=== PATIENT | male | born 1960 | race Caucasian/White ===

== ENCOUNTER → 2017-12-08 09:41 | Outpatient (CLI) | payer MEDICAID, SELFPAY ==
--- NOTE | 2017-12-08 09:57 | RAD_ITS ---
STUDY: X-RAY - LUMBAR SPINE REASON FOR EXAM: Male, 56 years old. Low back pain TECHNIQUE: 5 view(s) of the lumbar spine were obtained. COMPARISON: None FINDINGS: Normal lumbar lordosis. There is no substantial scoliosis. There is a normal alignment of the vertebrae. Posterior bilateral pedicles L5-S1 with disc spacer at L5-S1. Normal vertebral bodies and endplates. Normal disc space heights. The soft tissue structures are unremarkable. RAD/L/S Spine Min 4 Views IMPRESSION: No fracture. L5 and S1 hardware as described. Normal lordosis. Electronically Signed: Adonis Gotti DO at 10:39 EST , Service support ,
== END ==
PROVIDERS: Visit Provider Anesthesiology Pain Medicine
DX: M54.5 Low back pain (principal)
CPT/HCPCS: 72110

== ENCOUNTER → 2018-10-17 06:17 | Outpatient (CLI) | payer MEDICAID, SELFPAY ==
[2018-10-16 12:33] LABS: BUN 14 mg/dL (7-18); EST Glomerular Filtration Rate 73 mL/min (>60); Est Glom Filt Rate - Afr Amer 89 mL/min (>60)
--- NOTE | 2018-10-17 06:33 | MRI_ITS ---
STUDY: MRI LUMBAR SPINE WITH AND WITHOUT CONTRAST REASON FOR EXAM: Male, 57 years old. spondylosis, post lami syndrome, LOW BACK PAIN X 5 YRS. TECHNIQUE: Standardized fat and water weighted pulse sequences were obtained in the sagittal and axial planes. 10 ml of Gadavist contrast material was administered for the contrast portion of the examination. COMPARISON: X-ray dated December 08, 2017 FINDINGS: T12-L1: Normal endplates. Normal disc height, hydration and morphology. Normal bilateral facet joints. Normal central canal and bilateral lateral recesses. Normal bilateral intervertebral neural foramina. Normal lumbar lordosis. There is no substantial scoliosis. Normal conus medullaris that terminates at the L1 L1-2: Normal endplates. Normal disc height, hydration and morphology. Normal bilateral facet joints. Normal central canal and bilateral lateral recesses. Normal bilateral intervertebral neural foramina. L2-3: Normal endplates. Normal disc height, hydration and morphology. Normal central canal and bilateral lateral recesses. Normal bilateral intervertebral neural foramina. There is mild facet arthropathy L3-4: Normal endplates. Normal disc height, hydration and morphology. Normal central canal and bilateral lateral recesses. Normal bilateral intervertebral neural foramina. There is mild facet arthropathy L4-5: There is minimal disc space narrowing and endplate spondylosis. There is no significant disc herniation, central canal or foraminal stenosis. There is mild facet arthropathy L5-S1: There is mild disc space narrowing and endplates spondylosis. There is disc spacer and posterior fusion and decompression laminectomy. The central canal and bilateral neural foramina are widely patent Normal visualized sacral ala. MRI/Spine Lumbar W/WO Contrast IMPRESSION: L5/S1: Posterior fusion. Electronically Signed: Love Tripathi MD at 8:13 EST Tel , Service support ,
== END ==
PROVIDERS: Referring Provider Nurse Practitioner Family; Visit Provider Nurse Practitioner Family
DX: M46.96 Unspecified inflammatory spondylopathy, lumbar region (principal); M51.37 Other intervertebral disc degeneration, lumbosacral region; M96.1 Postlaminectomy syndrome, not elsewhere classified; M54.17 Radiculopathy, lumbosacral region; M47.817 Spondylosis without myelopathy or radiculopathy, lumbosacral region
CPT/HCPCS: 36415; 72158; 82565; 84520; A9585

== ENCOUNTER → 2019-05-21 13:31 | Outpatient (CLI) | payer MEDICAID, SELFPAY ==
[2019-05-21 14:19] LABS: PSA,Total - Annual Screen 1.34 ng/mL (0.00-4.00)
== END ==
PROVIDERS: Referring Provider Urology; Visit Provider Urology
DX: R35.1 Nocturia (principal)
CPT/HCPCS: 36415; 84153; G0103

== ENCOUNTER 2020-12-21 09:57 | Outpatient (RCR) | payer MEDICAID, SELFPAY ==
[2020-12-21] MEDS: COVID-19 VACC, MRNA(PFIZER)/PF 30 MCG/0.3 ML SYRINGE IM (10:17)
[2021-01-11] MEDS: COVID-19 VACC, MRNA(PFIZER)/PF 30 MCG/0.3 ML SYRINGE IM (09:46)
== END 2021-03-15 23:59 ==
LOC: IMMUN 09:57
PROVIDERS: Visit Provider Family Medicine
DX: Z23 Encounter for immunization (principal)
CPT/HCPCS: 0001A; 0002A; 91300

== ENCOUNTER 2021-03-22 04:45 | Observation (INO) | payer MEDICAID, SELFPAY ==
[2021-03-22] VITALS (13 sets, daily range): BP systolic 120–187; BP diastolic 74–102; PULSE 60–106; RESP 15–18; TEMP 36.2–37.2; O2SAT 94–100; BMI 27.7; BMI 27.2
--- NOTE | 2021-03-22 04:58 | CT_ITS ---
HISTORY: RUQ/epigastric pain, eval pancreas/gallbladder TECHNIQUE: Helically acquired images were obtained of the abdomen and pelvis following the intravenous administration of 100 ML of Isovue 300 Iodinated contrast. 2D reformats. No oral contrast was administered. A radiation dose optimization technique was used for this scan. COMPARISON: None FINDINGS: # of images incl. paperwork: [phone] LUNG BASES: Tiny pericardial effusion. Lung bases are clear. Within the left chest wall, anterior to the left ventricle, there is a 2.9 cm mass within the subcutaneous fat extending to the skin. Contains calcifications. This likely represents an epidermal inclusion cyst CT abdomen: Previous surgery at the L5-S1 level with posterior fixation and a prosthetic disc spacer. At least partial fusion across the left L5-S1 facets. Laminectomy L5. The gallbladder is distended with many gallstones in the gallbladder neck. These are calcified gallstones. Series 4 image 33 suggests a possible gallstone within the suprapancreatic portion of the common bile duct measuring about 1 mm. I cannot confirm this on additional imaging series. Liver, spleen, pancreas, and adrenal glands, are normal. A cortical cyst is present within the inferior pole right kidney. Parapelvic cysts are present bilaterally. Nonobstructing left nephrolith.. The aorta is diseased with atherosclerotic plaque. No aneurysm or dissection. CT pelvis: No ascites is present. The appendix is normal. Series 4 image 62. The prostate gland is slightly enlarged.. The bladder is mostly decompressed. Diverticulosis within the descending and sigmoid colon without diverticulitis. Periumbilical hernia contains fat. CT/Abdomen/Pelvis W IV Cont ONLY IMPRESSION: Cholelithiasis and likely acute cholecystitis. On one image, series 4 image 33 axial series there may be a 1 mm gallstone within the common bile duct as it starts to enter into the pancreatic head. Individualized dose optimization techniques were used for this CT. at 0601 Reported and signed by: Esteban Palacio MD Electronically Signed: Esteban Palacio MD at 6:00 EDT Tel , Service support ,
--- NOTE | 2021-03-22 05:00 | EX.ED.DYSGE1 ---
HPI History of Present Illness Chief Complaint: Abd Pain Informant: patient Narrative Narrative: Patient is a 60-year-old previously healthy male who presents to the emergency department for epigastric abdominal pain. This is been present over the past 5 or 6 hours. He describes the epigastric pain is sharp stabbing. He does have lower midline pain that he describes as burning. He tried taking a Tums for this which did not give any relief. He tried to make himself throw up which did not help. He has not been nauseous. He denies any change in bowel movements. He currently rates the pain as an 8 out of 10. No known aggravating or relieving factors. No urinary symptoms. Denies any chest pain or shortness of breath. He has chronic low back pain. No previous abdominal surgeries. He has not had any fevers or chills. [facility] Medical History (Updated 03/22/21 @ 06:[address] Jonatan Beverly DO) Chronic pain Degenerative disc disease Home Medications cyclobenzaprine 10 mg PO TID PRN 03/22/21 [History Last Taken Unknown] oxycodone-acetaminophen 1 tab PO DAILY PRN 03/22/21 [History Last Taken Unknown] Allergy/AdvReac Type Severity Reaction Status Date / Time No Known Allergies Allergy Verified 03/22/21 04:49 Surgical History (Updated 03/22/21 @ 04:51 by Sarita Sagastume) History of back surgery Social History Smoking Status: Current every day smoker tobacco type: cigarettes ROS ROS ED Constitutional Constitutional ED: Denies chills or fever(s) Eyes Eyes: Denies change in vision ENT ENT ED: Denies epistaxis or rhinorrhea Cardiovascular Cardiovascular: Denies chest pain or palpitations Respiratory/Chest Respiratory/Chest: Denies cough, dyspnea or dyspnea on exertion Gastrointestinal Gastrointestinal: Reports abdominal pain; Denies diarrhea, nausea or vomiting Genitourinary Genitourinary ED: Denies dysuria, hematuria or urinary frequency Musculoskeletal Musculoskeletal: Denies back pain or neck pain Integumentary Denies rash Neurologic Neurologic: Denies dizziness, headache(s) or weakness EXAM Physical Exam Const Vital Signs: 03/22/21 04:46 03/22/21 05:11 Temperature 97.7 F L Temperature Source Temporal Pulse Rate 106 H 102 H Respiratory Rate 16 16 Blood Pressure 185/98 H 187/102 H Blood Pressure Mean 127 130 Pulse Ox 100 98 Oxygen Delivery Method Room Air Room Air Positive well nourished and well developed General Appearance ED: well developed and NAD HEENT Reports normocephalic and head/scalp atraumatic Eyes PERRL and EOMs intact bilaterally Neck no lymphadenopathy and supple General: Negative for tenderness Resp normal respiratory effort and clear to auscultation bilaterally Auscultation: Negative for rales, rhonchi or wheezes Cardio regular rate, regular rhythm and no murmurs GI GI Narrative: Tenderness in the epigastric, right upper quadrant and right lower quadrant. No rebound or guarding. Negative Deutsch sign. Normal active bowel sounds. Back/Spine no CVA tenderness Extremity normal to inspection General Extremety ED: Negative for edema or tenderness General Extremity: Negative for edema Neuro no sensory deficits noted Sensorium / Orientation: alert Motor Exam: strength 5/5 throughout Psych mental status grossly normal Skin no rashes or lesions noted MDM MDM MDM Narrative Medical decision making narrative: Patient presents to the ED for abdominal pain. Upon arrival to the ED he is mildly hypertensive, tachycardic. He does not appear in any acute distress on physical exam. He does have tenderness which is mostly in the right upper quadrant and epigastric region. Will check basic lab work and CT scan of the abdomen/pelvis. He is given a dose of morphine and GI cocktail for symptomatic treatment. Patient's lab work showed elevation of his white blood cell count. Liver enzymes within normal limits. Alkaline phosphatase is mildly elevated lipase and bilirubin are normal. CT scan was concerning for acute cholecystitis. I did speak to the on-call general surgeon, Dr. Salcedo who was willing to admit the patient for surgery. Patient will be given a dose of Zosyn. Patient given a repeat dose of pain medication as he still in pain. This was all explained to the patient and he is agreeable with this plan. He otherwise has remained stable throughout ED stay. Lab Data Labs: Laboratory Results - last 24 hr 03/22/21 03/22/21 04:50 04:50 WBC 14.8 H RBC 5.60 Hgb 17.4 H Hct 52.5 MCV 93.8 MCH 31.1 MCHC 33.1 RDW Std Deviation 47.0 H RDW Coeff of Digna 13.4 Plt Count 318 MPV 9.6 Immature Gran % (Auto) 0.600 Neut % (Auto) 76.3 H Lymph % (Auto) 17.1 L Mineral % (Auto) 5.4 Eos % (Auto) 0.2 Baso % (Auto) 0.4 Absolute Neuts (auto) 11.3 H Absolute Lymphs (auto) 2.52 Nucleated RBC % 0 Sodium 138 Potassium 4.3 Chloride 102 Carbon Dioxide 30.0 Anion Gap 6 BUN 15 Creatinine 1.10 Estim Creat Clear Calc 76.06 Est GFR (MDRD) Af Amer 88 Est GFR (MDRD) Non-Af 73 BUN/Creatinine Ratio 13.6 Glucose 142 H Calcium 9.9 Total Bilirubin 0.50 AST 23 ALT 33 Alkaline Phosphatase 161 H Troponin I < 0.015 Total Protein 8.1 Albumin 4.0 Globulin 4.1 Albumin/Globulin Ratio 1.0 Lipase 166 Radiography Diagnostic Testing: Radiology Impression Abdomen/Pelvis CT 03/22/21 04:58 IMPRESSION: Cholelithiasis and likely acute cholecystitis. On one image, series 4 image 33 axial series there may be a 1 mm gallstone within the common bile duct as it starts to enter into the pancreatic head. Individualized dose optimization techniques were used for this CT. at 0601 Reported and signed by: Esteban Palacio MD Electronically Signed: Esteban Palacio MD at 6:00 EDT Tel , Service support , Discharge Plan Dx/Rx/DC Orders Clinical Impression: Acute cholecystitis Disposition Disposition: Acute Care [facility]
[2021-03-22 05:03] LABS: Absolute Lymphocyte Count 2.52 X10^3/uL (0.83-4.51); Absolute Neutrophil Count 11.3 X10^3/uL (2.0-7.7); Basophil# 0.06 X10^3/uL; Basophil% 0.4 % (0-1); Eosinophil# 0.03 X10^3/uL; Eosinophils% 0.2 % (0-5); Hematocrit 52.5 % (40-54); Hemoglobin 17.4 g/dL (13.0-16.5); Lymphocyte # 2.52 X10^3/ul (0.83-4.51); Lymphocyte % 17.1 % (19-41); Mean Corp Hgb Conc 33.1 g/dL (32-36); Mean Corpuscular Hgb 31.1 pg (27.0-32.0); Mean Corpuscular Volume 93.8 fL (80-94); Mean Platelet Vol. 9.6 fl (6.2-12.0); Monocyte% 5.4 % (0-10); NRBC Flagged by Analyzer 0 % (0-5); Neutrophil # 11.26 X10^3/uL (2.7-7.7); Neutrophil % 76.3 % (47-70); Platelet Count 318 K/mm3 (150-450); RBC Distribution Width CV 13.4 % (11.6-14.6); White Blood Count 14.8 K/mm3 (4.4-11.0)
[2021-03-22] MEDS: Mag Hydrox/Al Hydrox/Simeth 30 ML UDC PO (05:04)
[2021-03-22] MEDS: Morphine 4 MG/ML Syringe IV (05:04)
[2021-03-22 05:19] LABS: AST(SGOT) 23 U/L (15-37); Alanine Aminotransfer ALT/SGPT 33 U/L (16-61); Alkaline Phosphatase 161 U/L (45-117); Anion Gap 6 (5-15); BUN 15 mg/dL (7-18); BUN/Creat Ratio 13.6 RATIO (10-20); Calcium,Total 9.9 mg/dL (8.5-10.1); Chloride 102 mmol/L (98-107); EST Glomerular Filtration Rate 73 mL/min (>60); Est Glom Filt Rate - Afr Amer 88 mL/min (>60); Estimated Creatinine Clearance 76.06 ml/min; Globulin 4.1 g/dL (2.2-4.2); Glucose 142 mg/dL (74-106); Lipase 166 U/L (73-393); Potassium 4.3 mmol/L (3.5-5.1); Protein, Total 8.1 g/dL (6.4-8.2); Sodium Level 138 mmol/L (136-145)
[2021-03-22] MEDS: HYDROmorphone 1 MG/ML Syringe IV (06:52)
--- NOTE | 2021-03-22 06:52 | EKG12_ITS ---
Test Reason : ABDOMINAL PAIN Blood Pressure : / mmHG Vent. Rate : 084 BPM Atrial Rate : 084 BPM P-R Int : 154 ms QRS Dur : 078 ms QT Int : 368 ms P-R-T Axes : 061 -18 040 degrees QTc Int : 434 ms Normal sinus rhythm Low voltage QRS Borderline ECG Confirmed by FLO TRISTAN, IGNACIO ([id number]), assistant film editor FARIBA PANTOJA ([id number]) on 03/24/2021 10:00:12 AM Referred By: LYNDSEY Confirmed By:IGNACIO ROSSI MD
--- NOTE | 2021-03-22 07:35 | NURSING ---
Alirio MORGAN ACUTE CHOLECYSTITIS
--- NOTE | 2021-03-22 11:23 | HP.PCM_ITS ---
History and Physical Date of Admission: 03/22/21 Chief Complaint: abdominal pain History of Present Illness: 60 y/o WM presents to ED this morning with acute onset of severe epigastric abdominal pain. He has had episodes in the past but they have been transient and less severe. This has been present for hours. Workup in the ED revealed elevated WBC. CT scan reveals multiple calcified gallstones, possible choledocholithiasis. Past Medical History: chronic back pain Past Surgical History: back surgery Medications: cylcobenzapine percocet 1 qd Allergies: Has no known drug allergies Social history: TOB use cigars Review of Systems: General - denies fevers, has no appetite at present Cardiovascular denies chest pain, denies history of heart attack, denies heart problems Pulmonary denies shortness of breath, denies coughing up blood Gastrointestinal as per HPI Neurological denies seizures, denies history of stroke Genitourinary denies burning with urination, denies blood in urine Hematological denies spontaneous/prolonged bleeding Skin denies open non healing wounds Musculoskeletal has chronic back pain receiving injections Endocrine denies diabetes Psychological denies hallucinations Physical examination: Vital signs Temp 97.7F General WD/WN WM in no apparent distress, alert and oriented, not septic appearing Head - normocephalic - no evidence of trauma infections Eyes - EOM intact with sclera clear and no icterus noted. Neck is supple with no jugular venous distention noted. Trachea is midline. . Lungs normal respiratory excursion, no adventitial sounds noted. No labored breathing noted, such as retractions. No cough heard. Heart regular Abdomen soft but tender in epigastrium and RUQ, no peritoneal signs noted. Extremities no pitting edema noted. . Genitourinary/Rectal deferred Skin normal skin integrity. Neurological non focal. Psychological normal affect, patient is calm and appropriate Impression: cholelithiasis, cholecystitis DIscussion/Plan: I have discussed the above with the patient. I have offered the patient the procedure of laparoscopic cholecystectomy,possible cholangiograms. I have explained the procedure to the patient. I have counseled the patient as to the risks of the procedure, including but not limited to: infection, bleeding, injury to any blood vessels/nerves, scar tissue, injury to any intraabdominal organs, injury to kidney/ureters, injury to bowel/bladder, injury to the common bile duct/biliary tree, bile leakage, intraabdominal abscess/bleeding, hernias at incisional sites, wound infections, possible open procedure, complications of anesthesia, postoperative pneumon ia/cardiac problems/blood clots etc. the patient understands. The patient was offered a surgery/procedure. The provider and patient have discussed in detail the risk of exposure to and/or potential harm posed by the COVID-19 virus with having a surgery/procedure at this time versus the risk of delaying the surgery/procedure. It is not possible to know either the risk of delaying the surgery or procedure or chance of getting an infection with perfect accuracy, but a joint decision was made between the patient and the provider to proceed at this time with the scheduled surgery/procedure. I have answered all questions to the patient?s satisfaction and the patient has no further questions. He wishes to proceed
[2021-03-22] MEDS: 0.9% Normal Saline 1,000 ML 125 ML IV ×2 (11:38→20:10)
--- NOTE | 2021-03-22 15:30 | GALL_PTH ---
PATIENT: HIWOT DELCID LOC: MS3 U#:[id number] AGE/SX: 60/M [place] [facility] [place]: Dr. Elina Salcedo MD : [id number] BED: 1 DIS: 03/23/2021 SPEC #: [id number] RECD: 03/23/21 07:03 STATUS: MILLER REAnum #: [id number] WOJCIECH: 03/22/21 15:[address]: Elina Salcedo DEPT: SURGICAL PATHOLOGY RECD BY: Pinky Ybarra ENTERED: 03/23/21 10:43 SP TYPE: [facility] DR: No Primary Care Phys Tissues: Gallbladder, NOS Procedures: Surgery Specimen Level III HEADER OPERATION: Laparoscopic cholecystectomy PRE-OP DIAGNOSIS: Cholelithiasis, cholecystitis TISSUE SUBMITTED: Gallbladder MICROSCOPIC DIAGNOSIS Gallbladder, cholecystectomy: Acute and chronic cholecystitis and cholelithiasis. AM:becky 03/24/2021 MICROSCOPIC DESCRIPTION Slides are reviewed. GROSS DESCRIPTION Received is one container labeled with the patient's name and designated gallbladder. The specimen consists of a previously, partially opened gallbladder measuring 6 cm in length and up to 3.5 cm in diameter. An obvious cystic duct is not seen. No carline are noted at the proximal margin. Present in the gallbladder and also in the container are multiple mulberry, yellowish-orange stones measuring in aggregate 2 x 2.4 x 0.7 cm and 0.3 to 0.7 cm in greatest dimension. The mucosa is bile-stained and without any mass lesions. The gallbladder wall measures up to 1 cm in thickness. Increased amount of subserosal fat is noted. Aquaculture Farm Manager sections from the gallbladder are submitted in one cassette. / SJ:becky 03/23/21 TC:2 [facility]: [id number]
[2021-03-22] MEDS: Bupivacaine 0.25% 30 ML Vial (16:43)
--- NOTE | 2021-03-22 17:59 | OP.PCM_ITS ---
Report of Operation Date of Procedure: 03/22/21 Pre-Operative Diagnosis: cholelithiasis, cholecystitis Post-Operative Diagnosis: same Surgery/Procedure Performed:: laparoscopic cholecystectomy Description of Surgical Findings:: wall thickening - acute and chronic changes of cholecystitis Surgeon: Elina Salcedo business excellence manager: Vivek Webb Type of Anesthesia: General Anesthesiologist: Mateus Mcfarland Specimen's removed: gallbladder and contents Drains: 15 Fr YONIS drain Estimated Blood Loss (mL): 30 ml Fluids Replaced: 1200 ml RL Description of Procedure: After informed consent was given, the patient was brought to the Operating Room. Appropriate time out protocol was followed. The patient was placed in the supine position. The patient was then placed under general endotracheal anesthesia by the anesthesia provider. The abdomen was then prepped with a sterile surgical skin preparation and sterile surgical drapes were placed. An area superior to the umbilical dimple was grasped with p enetrating clamps and the skin and subcutaneous tissues were infiltrated with 0.25% marcaine. A skin incision was then made with a 15 blade scalpel. The anterior abdominal wall was elevated and the fascia was incised under direct visualization, there was mesh present. A 12mm trocar was placed into the abdomen and a CO2 pneumoperitoneum was then created. Once this was achieved, then a 10mm laparoscope was then inserted into the trocar and careful attention was directed to the intraabdominal contents. There was no evidence of injury to any intraabdominal organs from insertion of the trocar. Under direct visualization, a 5mm subxiphoid trocar and two lateral 5mm right subcostal trocars were placed. The skin and subcutaneous tissues at these sites were infiltrated with 0.25% marcaine prior to placement of these trocars. Attention was then directed to the right upper quadrant of the abdomen. The gallbladder wall was thickened and not visualized proximally due to the amount of inflammatory fatty tissues. There was surrounding inflammatory pericholecystic fluid. The inflammatory fatty tissues were from the gallbladder wall using blunt dissection and there was inflammatory oozing that was noted. This was controlled with electrocautery. The inflammation was densest at the area of the triangle of Calot. Graspers were placed in the lateral trocars to grasp the distal aspect of the gallbladder and direct it cephalad and to grasp the gallbladder at Romo?s pouch and direct it laterally. Dissection then began on the mid to proximal gallbladder through the thickened inflammation to identify the gallbladder wall. Once the gallbladder wall was identified, then water irrigation was used for blunt dissection to delineate the tissues. This was continued down to the triangle of Calot area. This took some time, due to controlling the inflammatory oozing and also careful dissection to identify the tissues which was difficult due to the inflammation. The critical angle was identified - the cystic duct, the inferior edge of the gallbladder dissected away from the liver bed. The neck of the gallbladder was identified and blunt dissection continued to dissect out a segment of the cystic duct. A clip was then placed on the neck of the gallbladder. Two clips were placed proximally and the duct was transected. The artery was identified and two clips were placed proximally and one clip distally and then it was transected between the proximal and distal clips. The gallbladder was then from the liver bed using electrocautery. This took some time due to the dense nature of the thickened gallbladder wall. Once from the liver bed, it was brought out via the umbilical port in an endobag. It was then forwarded to pathology for analysis. The liver bed was carefully examined. There was no evidence of bile leakage or bleeding. The cystic duct stump and cystic artery stump had their clips intact and there was no evidence of bile leakage or bleeding. There was inflammatory oozing and therefore Fitz was applied. Due to the edema, a 15 Fr drain was placed in the RUQ of the abdomen with the drainage bed inferior to the liver edge. The remainder of the abdomen was grossly normal. The CO2 was released and all trocars removed intact. The periumbilical fascia was approximated with a [id number] prolene suture to also reapproximate the mesh. All skin incision were closed with 4-0 monocryl in a subdermal fashion. Cavilol and Steristrips were used to reinforce the skin closure. Sterile dressings were applied to all wounds. Sponge, needle and instrument count was verified and correct at time of skin closure. The patient was extubated and brought to the Recovery Room in stable condition. Complications none noted Admit VTE Documentation VTE Present on Admission: Yes VTE Mechan Device Prophylaxis: SCD's
[2021-03-22] MEDS: HYDROcodone Bitartrate/Apap 5/325 Tablet PO (20:16)
[2021-03-23] MEDS: HYDROcodone Bitartrate/Apap 5/325 Tablet PO (00:17)
[2021-03-23 00:19] VITALS: BP 98/71; PULSE 74; RESP 16; TEMP 36.4; O2SAT 95
[2021-03-23 05:01] VITALS: BP 130/70; PULSE 81; RESP 16; TEMP 36.4; O2SAT 98
[2021-03-23 06:01] LABS: AST(SGOT) 48 U/L (15-37); Alanine Aminotransfer ALT/SGPT 58 U/L (16-61); Albumin, Serum 3.1 g/dL (3.2-5.0); Alkaline Phosphatase 139 U/L (45-117); Bilirubin, Direct 0.22 mg/dL (0.00-0.30); Globulin 3.6 g/dL (2.2-4.2); Protein, Total 6.7 g/dL (6.4-8.2)
[2021-03-23 07:52] VITALS: BP 127/82; PULSE 90; RESP 14; TEMP 36.6; O2SAT 96
--- NOTE | 2021-03-23 09:57 | PCM.PN.SRG ---
Subjective Subjective Patient feeling much improved prior to presentation able to void requiring minimal pain medications YONIS output is serosanguinous Objective Data Objective Data Vital Signs: Vital Signs Temp Pulse Resp BP Pulse Ox 97.8 F 90 14 127/82 H 96 03/23/21 07:52 03/23/21 07:52 03/23/21 07:52 03/23/21 07:52 03/23/21 07:52 Oxygen Delivery Method Room Air Weight: 88.6 kg Body Mass Index (BMI) 27.2 Intake & Output: Intake and Output for Last 24 Hours 03/21/21 03/22/21 03/23/21 23:59 23:59 23:59 Intake Total 2435.42 / 2435.42 1115.42 / 1115.42 Output Total 325 / 325 360 / 360 Balance 2110.42 / 2110.42 755.42 / 755.42 Lab / Micro Data Result Diagrams: 03/22/21 04:50 03/22/21 04:50 Labs: Laboratory Results - last 24 hr 03/23/21 05:22 Total Bilirubin 0.70 Direct Bilirubin 0.22 AST 48 H ALT 58 Alkaline Phosphatase 139 H Total Protein 6.7 Albumin 3.1 L Globulin 3.6 Physical Exam GI normal to inspection, nondistended, normoactive bowel sounds
--- NOTE | 2021-03-23 10:04 | PCM.DC ---
Discharge Instructions Follow Up Care Test Results: Test results from this visit will be discussed in further detail at your follow-up appointment, if applicable. Discharge Plan Admission Admit Date/Time: 03/22/21 07:28 Attending Provider: Elina Salcedo Primary Care Provider: Care PhysicianGracie Primary Instructions Additional Instructions / Restrictions: Recommended pain control regimen - May take 600 mg ibuprofen (Motrin) and then in 3-4 hours, may take 650 mg acetaminophen (Tylenol), then in 3-4 hours may take 600 mg ibuprofen, then in 3-4 hours may take 650 mg acetaminophen and so on for 2-3 days May take narcotic pain medication for pain that is not controlled by above and at night for comfort through the night Leave dressings in place May take shower, cover drain site with towel or other such covering to prevent from getting overly wet Do not soak - no tub baths/swimming Ice applied to areas of discomfort may help No lifting/pushing/pulling greater than 20 pounds for a month. Please come to my office on Sunday, March 25, at 2:00 If any questions, please call my office at and ask the casting operator helper for the general surgery nurses desk Discharge Orders/Prescriptions Prescriptions: New oxycodone-acetaminophen [Percocet] 5-325 mg tablet 1 tab PO Q8H PRN (Reason: pain) 5 Days Qty: 14 RF: 0 No Action cyclobenzaprine 10 mg tablet 10 mg PO TID PRN (Reason: Muscle Spasm) RF: 0 oxycodone-acetaminophen 5-325 mg tablet 1 tab PO DAILY PRN (Reason: Pain) RF: 0 Referrals / Follow Up: Care Physician,No Primary [Primary Care Provider] -
--- NOTE | 2021-03-23 11:45 | PHA.DC.MR ---
Pharmacy Service has performed discharge medication reconciliation for this patient. The patient's discharge medication list was reviewed for discrepancies and discrepancies were resolved. Home Medications cyclobenzaprine 10 mg PO TID PRN 03/22/21 oxycodone-acetaminophen 1 tab PO DAILY PRN 03/22/21 oxycodone-acetaminophen [Percocet] 1 tab PO Q8H PRN 5 Days #14 tab 03/23/21
== END 2021-03-23 11:30 | disposition home or self-care (01) ==
LOC: ED 06:53 → MS3 07:38
PROVIDERS: Admitting Provider Surgery; Emergency Provider Emergency Medicine; Visit Provider Surgery
PROC: (CPT 47610; principal; 2021-03-22 15:10)
DX: K80.12 Calculus of gallbladder with acute and chronic cholecystitis without obstruction (principal); G89.29 Other chronic pain; F17.210 Nicotine dependence, cigarettes, uncomplicated; G25.81 Restless legs syndrome; G47.30 Sleep apnea, unspecified; G43.909 Migraine, unspecified, not intractable, without status migrainosus
CPT/HCPCS: 47562; 36415; 74177; 80053; 80076; 83690; 84484; 85025; 88304; 93005; 96361; 96365; 96366; 96375; 99218; 99284; 99406; J7030; J7050; Q9967; A4216; G0378; J2405

== ENCOUNTER → 2022-02-28 | Outpatient (CLI) | payer MEDICAID, SELFPAY ==
--- NOTE | 2022-02-28 13:31 | RAD_ITS ---
STUDY: X-RAY - LUMBAR SPINE REASON FOR EXAM: Male, 61 years old. LOW BACK PAIN / PLS TECHNIQUE: XR Spine Lumbar Min 4 Views COMPARISON: 3.3.18 FINDINGS: Normal lumbar lordosis. There is no substantial scoliosis. There is a normal alignment of the vertebrae. Normal vertebral bodies and endplates. Normal disc space heights. Anterior osteophyte at L3-4 and L4-5. Spinal fixation hardware noted in the spine. There is/ are disc spacer(s) in place. There are laminectomy changes in the spine. This is consistent for previous surgery. There is atherosclerotic calcification of the abdominal aorta without a demonstrated aneurysm. RAD/L/S Spine Min 4 Views IMPRESSION: Degenerative changes of the spine, as detailed above. No significant change since prior Electronically Signed: Yohannes Tolbert MD at 14:21 EDT ,
== END | disposition home or self-care (01) ==
LOC: RAD 13:30
PROVIDERS: Referring Provider Anesthesiology Pain Medicine; Visit Provider Anesthesiology Pain Medicine
DX: M54.50 Low back pain, unspecified (principal)
CPT/HCPCS: 72110

== ENCOUNTER 2022-04-23 19:30 | Emergency (ER) | payer MEDICAID, SELFPAY ==
[2022-04-23 19:32] VITALS: BP 167/85; PULSE 88; RESP 16; TEMP 36.4; O2SAT 100; BMI 27.8
[2022-04-23 19:57] VITALS: PULSE 88; RESP 16; O2SAT 98
--- NOTE | 2022-04-23 20:04 | EKG12_ITS ---
Test Reason : CP Blood Pressure : / mmHG Vent. Rate : 085 BPM Atrial Rate : 085 BPM P-R Int : 150 ms QRS Dur : 084 ms QT Int : 382 ms P-R-T Axes : 067 -09 025 degrees QTc Int : 454 ms Normal sinus rhythm Normal ECG Confirmed by FLO TRISTAN, IGNACIO ([id number]), medical editor CHASE VALLECILLO ([id number]) on 04/24/2022 11:19:06 AM Referred By: RASHAWN Confirmed By:IGNACIO ROSSI MD
--- NOTE | 2022-04-23 20:05 | EDS_ITS ---
HPI History of Present Illness Chief Complaint: Chest Pain Detail of Chief Complaint: Chest pain that started 1 hour ago Informant: patient Narrative Narrative: Patient presents with chest pain that started an hour ago. He describes it as pain over sternum and describes it as achy and rates it a 6 out of 10. Patient states he had a similar pain last evening that lasted about 4 5 hours and Tums did not help resolve it. Patient also had an episode 2 weeks ago. He denies any radiation of discomfort. Denies any shortness of breath with it. He did state that it was worse if he pushed on the area. He has no heart history. He does have history of some chronic back pain and is in pain management. Has had prior cholecystectomy. Patient states that pain feels similar lead to what he had before he got his cholecystectomy. Patient denies recent travel or surgery. No history of PE or DVT. Prior Similar Symptoms: Yes PFSH PFSH Medical History Chronic pain Degenerative disc disease Migraines Restless legs Sleep apnea Smoker Home Medications cyclobenzaprine 10 mg tablet 10 mg PO TID PRN Muscle Spasm 03/22/21 [History Last Taken Unknown] oxycodone-acetaminophen 5 mg-325 mg tablet 1 tab PO DAILY PRN Pain 03/22/21 [History Last Taken Unknown] oxycodone-acetaminophen 5 mg-325 mg tablet (Percocet) 1 tab PO Q8H PRN pain 5 days #14 tabs 03/23/21 [Rx Last Taken Unknown] Allergy/AdvReac Type Severity Reaction Status Date / Time No Known Allergies Allergy Verified 04/23/22 19:34 Surgical History (Updated 04/23/22 @ 19:58 by Sarita Holder) History of back surgery History of cholecystectomy Social History Smoking Status: Current every day smoker tobacco type: cigarettes ROS ROS ED Review of Systems ROS Unobtainable: other Constitutional Constitutional ED: Reports lethargy; Denies chills, fever(s), sweats or weight loss Eyes Eyes: Denies blurry vision, change in vision or diplopia ENT ENT ED: Denies rhinorrhea or sore throat Cardiovascular Cardiovascular: Reports chest pain; Denies orthopnea or racing heartbeat Respiratory/Chest Respiratory/Chest: Reports dyspnea and dyspnea on exertion; Denies cough, orthopnea or sputum Gastrointestinal Gastrointestinal: Denies abdominal pain, diarrhea, nausea or vomiting Genitourinary Genitourinary ED: Denies dysuria, hematuria or urinary frequency Musculoskeletal Musculoskeletal: Denies arthralgias, back pain, myalgias or neck pain Integumentary Denies abscess, Abrasions or rash Neurologic Neurologic: Denies headache(s) or weakness Psychiatric Psychiatric: Denies anxiety, depression or suicidal thoughts Endocrine Endocrinology: Denies polydipsia, polyphagia or polyuria Hematologic/Lymphatic Hematologic/Lymphatic: Denies easy bleeding, easy bruising or lymphadenopathy Allergic/Immunologic Allergic/Immunologic ED: Denies mouth swelling, tongue swelling or urticaria EXAM Physical Exam Const Vital Signs: 04/23/22 19:32 04/23/22 19:57 04/23/22 19:57 Temperature 97.6 F L Temperature Source Temporal Pulse Rate 88 88 Respiratory Rate 16 16 Respiratory Pattern Normal Blood Pressure 167/85 H Blood Pressure Mean 112 Pulse Ox 100 98 Oxygen Delivery Method Room Air Room Air 04/23/22 20:07 04/23/22 22:08 Temperature Temperature Source Pulse Rate 73 Respiratory Rate 15 Respiratory Pattern Blood Pressure 146/89 H Blood Pressure Mean 108 Pulse Ox 100 Oxygen Delivery Method Room Air Room Air Positive well nourished and well developed General Appearance ED: well developed and NAD HEENT Reports TM's clear and moist mucous membranes normocephalic and atraumatic; Negative for trauma or tenderness Tympanic Membrane ED: Yes TM's clear Eyes PERRL and EOMs intact bilaterally General Eye ED: Negative for pale conjunctiva or scleral icterus Neck no lymphadenopathy, supple and no JVD General: Negative for tenderness Chest Wall inspection of chest normal and palpation of chest normal Chest Narrative: I am unable to reproduce patient's pain with palpation. Chest: Negative for tenderness Resp normal respiratory effort and clear to auscultation bilaterally Effort and Inspection: Negative for respiratory distress or pain with movement Auscultation: Negative for rhonchi, wheezes or diminished lung sounds Cardio regular rate, regular rhythm, S1 normal heart sound, S2 normal heart sound and no murmurs Peripheral Pulses: pulses 2+ throughout GI normal to inspection, nondistended, normoactive bowel sounds, soft to palpation, non-tender, non-distended and no masses Back/Spine no CVA tenderness and no thoracic nor lumbar tenderness Extremity normal to inspection General Extremety ED: Negative for edema General Extremity: Negative for edema Neuro oriented x3, CN's II-XII intact bilaterally, no sensory deficits noted and gait normal Sensorium / Orientation: awake, alert, oriented to person, oriented to place and oriented to time Motor Exam: strength 5/5 throughout and strength abnormal Psych mental status grossly normal Skin no rashes or lesions noted and no wounds Heart Score History: Slightly/Non-Suspicious ECG: Normal Age: >45 - <65 years Risk Factors: No Risk Factors Troponin: </= Normal Limit Score: 1 MDM MDM MDM Narrative Medical decision making narrative: IV line established on arrival. Patient did not anything for pain. Lab work-up was normal. D-dimer normal. Troponin normal. Chest x-ray showed nothing acute. Delta troponin also was normal. This point etiology of his pain is unclear. On repeat examination he is pain-free. Patient advised to follow-up with his primary care physician within next 3 to 5 days. Patient to return if worsening pain, shortness of breath, diaphoresis, exertional dyspnea, or condition worsen anyway. Lab Data Attestation: I reviewed the patient's lab results. Labs: Laboratory Results - last 24 hr 04/23/22 04/23/22 04/23/22 20:00 20:00 20:00 WBC 10.7 RBC 5.07 Hgb 16.0 Hct 48.2 MCV 95.1 H MCH 31.6 MCHC 33.2 RDW Std Deviation 48.6 H RDW Coeff of Digna 14.1 Plt Count 246 MPV 9.8 Immature Gran % (Auto) 0.100 Neut % (Auto) 58.6 Lymph % (Auto) 32.8 [place] % (Auto) 6.5 Eos % (Auto) 1.4 Baso % (Auto) 0.6 Absolute Neuts (auto) 6.3 Absolute Lymphs (auto) 3.52 Nucleated RBC % 0 D-Dimer Quant (PE/DVT) 0.36 Sodium Potassium Chloride Carbon Dioxide Anion Gap BUN Creatinine Estim Creat Clear Calc Est GFR (MDRD) Af Amer Est GFR (MDRD) Non-Af BUN/Creatinine Ratio Glucose Calcium Total Bilirubin 0.40 Direct Bilirubin 0.08 AST 22 ALT 31 Alkaline Phosphatase 136 H Troponin I High Sens Total Protein 7.1 Albumin 3.6 Globulin 3.5 Lipase 04/23/22 04/23/22 20:00 22:03 WBC RBC Hgb Hct MCV MCH MCHC RDW Std Deviation RDW Coeff of Digna Plt Count MPV Immature Gran % (Auto) Neut % (Auto) Lymph % (Auto) [place] % (Auto) Eos % (Auto) Baso % (Auto) Absolute Neuts (auto) Absolute Lymphs (auto) Nucleated RBC % D-Dimer Quant (PE/DVT) Sodium 140 Potassium 3.9 Chloride 106 Carbon Dioxide 30.0 Anion Gap 4 L BUN 11 Creatinine 1.11 Estim Creat Clear Calc 74.43 Est GFR (MDRD) Af Amer 87 Est GFR (MDRD) Non-Af 72 BUN/Creatinine Ratio 9.9 L Glucose 116 H Calcium 9.6 Total Bilirubin Direct Bilirubin AST ALT Alkaline Phosphatase Troponin I High Sens 5 6 Total Protein Albumin Globulin Lipase 111 Radiography Chest X-Ray - ED: 1 View Diagnostic Testing: Clinical Impression(s) from Imaging Studies Chest X-Ray 04/23/22 20:07 IMPRESSION: Normal x-ray examination of the chest. Electronically Signed: Francis Galan MD at 20:25 EDT Reading Location ID and State: [facility] / [place] , Service support , 1 view chest ray obtained interpreted by myself as no acute disease process. Radiology in agreement. EKG Initial EKG: Attestation: I personally reviewed and interpreted this EKG as follows: Comments: Sinus rhythm with a ventricular rate of 85 bpm with no acute ST segment changes Discharge Plan Triage Chief Complaint: Chest Pain ED Provider: Christian Eli Dx/Rx/DC Orders Clinical Impression: Chest pain Instructions: ED Chest Pain, Uncertain Cause Prescriptions: No Action cyclobenzaprine 10 mg tablet 10 mg PO TID PRN (Reason: Muscle Spasm) Label Comments: TAKE 1 TABLET BY MOUTH THREE TIMES DAILY NEEDED spasms oxycodone-acetaminophen 5-325 mg tablet 1 tab PO DAILY PRN (Reason: Pain) Label Comments: TAKE 1 TABLET BY MOUTH EVERY DAY NEEDED oxycodone-acetaminophen [Percocet] 5-325 mg tablet 1 tab PO Q8H PRN (Reason: pain) 5 Days Qty: 14 0RF Primary Care Provider: Care Physician,No Primary Referrals: Philip Rowe DO [STAFF PHYSICIAN] - 3-5 Days Care Physician,No Primary [Primary Care Provider] - Disposition Disposition: Home, Self Care
--- NOTE | 2022-04-23 20:07 | RAD_ITS ---
STUDY: X-RAY CHEST REASON FOR EXAM: Male, 61 years old. Acute substernal chest pain TECHNIQUE: Single AP portable view of the chest. COMPARISON: 02/12/2013 FINDINGS: EKG leads overlie the chest The lungs are clear and expanded. There is no demonstrated pleural abnormality. Normal size heart. Normal mediastinum and crystal. Normal visualized pulmonary arteries. Normal visualized aortic arch and descending thoracic aorta. Normal visualized thoracic spine. Normal visualized ribs, clavicles, and shoulders. There is no demonstrated abnormality of the visualized soft tissue structures of the upper abdomen. RAD/Chest 1 View (Portable) IMPRESSION: Normal x-ray examination of the chest. Electronically Signed: Francis Galan MD at 20:25 EDT ,
[2022-04-23] MEDS: Aspirin 81 MG TAB.CHEW 324 MG PO (20:13)
[2022-04-23] MEDS: 0.9% Normal Saline 1,000 ML 150 ML IV (20:13)
[2022-04-23 20:15] LABS: Absolute Lymphocyte Count 3.52 X10^3/uL (0.83-4.51); Absolute Neutrophil Count 6.3 X10^3/uL (2.0-7.7); Basophil# 0.06 X10^3/uL; Basophil% 0.6 % (0-1); Eosinophil# 0.15 X10^3/uL; Eosinophils% 1.4 % (0-5); Hematocrit 48.2 % (40-54); Lymphocyte # 3.52 X10^3/ul (0.83-4.51); Lymphocyte % 32.8 % (19-41); Mean Corp Hgb Conc 33.2 g/dL (32-36); Mean Corpuscular Hgb 31.6 pg (27.0-32.0); Mean Corpuscular Volume 95.1 fL (80-94); Mean Platelet Vol. 9.8 fl (6.2-12.0); Monocyte% 6.5 % (0-10); NRBC Flagged by Analyzer 0 % (0-5); Neutrophil # 6.28 X10^3/uL (2.7-7.7); Neutrophil % 58.6 % (47-70); Platelet Count 246 K/mm3 (150-450); RBC Distribution Width CV 14.1 % (11.6-14.6); RBC Distribution Width SD 48.6 fl (35.1-43.9); Red Blood Count 5.07 M/mm3 (4.6-6.2); White Blood Count 10.7 K/mm3 (4.4-11.0)
[2022-04-23 20:34] LABS: Anion Gap 4 (5-15); BUN 11 mg/dL (7-18); BUN/Creat Ratio 9.9 RATIO (10-20); Calcium,Total 9.6 mg/dL (8.5-10.1); Chloride 106 mmol/L (98-107); Creatinine, Serum 1.11 mg/dL (0.70-1.30); EST Glomerular Filtration Rate 72 mL/min (>60); Est Glom Filt Rate - Afr Amer 87 mL/min (>60); Estimated Creatinine Clearance 74.43 ml/min; Glucose 116 mg/dL (74-106); Lipase 111 U/L (73-393); Potassium 3.9 mmol/L (3.5-5.1); Sodium Level 140 mmol/L (136-145); Troponin-I HS (w/2H Reflex) 5 pg/mL (3.0-78.0)
[2022-04-23 20:40] LABS: D-Dimer Quantitative (DVT/PE) 0.36 FEU/ug/m (0.27-0.49)
[2022-04-23 20:41] LABS: AST(SGOT) 22 U/L (15-37); Alanine Aminotransfer ALT/SGPT 31 U/L (16-61); Albumin, Serum 3.6 g/dL (3.2-5.0); Alkaline Phosphatase 136 U/L (45-117); Bilirubin, Direct 0.08 mg/dL (0.00-0.30); Globulin 3.5 g/dL (2.2-4.2); Protein, Total 7.1 g/dL (6.4-8.2)
[2022-04-23 22:08] VITALS: BP 146/89; PULSE 73; RESP 15; O2SAT 100
[2022-04-23 22:09] LABS: Reflex Troponin-HS? (from REC) Y
[2022-04-23 22:39] LABS: Troponin-I HS 6 pg/mL (3.0-78.0)
[2022-04-23 23:11] VITALS: BP 133/78; PULSE 75; RESP 16; O2SAT 98
== END 2022-04-23 23:14 | disposition home or self-care (01) ==
PROVIDERS: Emergency Provider Emergency Medicine; Visit Provider Emergency Medicine
DX: R07.9 Chest pain, unspecified (principal); G89.29 Other chronic pain; M54.9 Dorsalgia, unspecified; F17.210 Nicotine dependence, cigarettes, uncomplicated; Z90.49 Acquired absence of other specified parts of digestive tract
CPT/HCPCS: 71045; 80048; 80076; 83690; 84484; 85025; 85379; 93005; 96360; 96361; 99285; J7030; A4216

== ENCOUNTER 2022-07-28 17:29 | Emergency (ER) | payer MEDICAID, SELFPAY ==
--- NOTE | 2022-07-28 17:23 | EKG12_ITS ---
Test Reason : CP Blood Pressure : / mmHG Vent. Rate : 084 BPM Atrial Rate : 084 BPM P-R Int : 146 ms QRS Dur : 080 ms QT Int : 372 ms P-R-T Axes : 072 014 057 degrees QTc Int : 439 ms Normal sinus rhythm Normal ECG Confirmed by CORRY TRISTAN, SABAS ([id number]), deputy editor in chief FARIBA PANTOJA ([id number]) on 08/01/2022 1:28:27 PM Referred By: Confirmed By:SABAS WHEATLEY MD
[2022-07-28 17:30] VITALS: PULSE 84; RESP 19; TEMP 36.4; O2SAT 99; BMI 27.3
[2022-07-28 17:35] VITALS: BP 160/83; O2SAT 99
--- NOTE | 2022-07-28 18:00 | RAD_ITS ---
STUDY: X-RAY CHEST REASON FOR EXAM: Male, 61 years old. chest pain TECHNIQUE: PA and lateral views of the chest. COMPARISON: 04/23/2022 FINDINGS: The lungs are clear and expanded. There is no demonstrated pleural abnormality. Normal size heart. Normal mediastinum and crystal. Normal visualized pulmonary arteries. Normal visualized aortic arch and descending thoracic aorta. Normal visualized thoracic spine. Normal visualized ribs, clavicles, and shoulders. There is no demonstrated abnormality of the visualized soft tissue structures of the upper abdomen. RAD/Chest PA and Lateral IMPRESSION: Normal x-ray examination of the chest. Electronically Signed: Francois Peña MD at 18:27 EDT ,
--- NOTE | 2022-07-28 18:14 | ED.VIS.CHEST ---
HPI History of Present Illness Chief Complaint: Chest Pain Informant: patient and spouse/S.O. Narrative Narrative: Sudden epigastric lower sternal chest pressure with mild dyspnea 50 minutes prior to arrival. Took 2 Tums and symptoms resolving. Denies numbness in the arms or neck. No recent cough. Similar symptoms a year ago when his gallbladder was removed. He was done here. 5 6 months ago recurrent similar symptoms work-up in the ED that was negative. No history of recent stress test no heart cath. Denies hypertension, diabetes, hyperlipidemia. Tobacco history. Denies family history of MIs at young age. No PE risk factors. He is on oxycodone and Flexeril for chronic back pain with 2 surgeries in the past. Prior Similar Symptoms: Yes PFSH PFSH Medical History Chronic pain Degenerative disc disease Migraines Restless legs Sleep apnea Smoker Home Medications cyclobenzaprine 10 mg tablet 10 mg PO TID PRN Muscle Spasm 03/22/21 [History Last Taken Unknown] oxycodone-acetaminophen 5 mg-325 mg tablet 1 tab PO DAILY PRN Pain 03/22/21 [History Last Taken Unknown] oxycodone-acetaminophen 5 mg-325 mg tablet (Percocet) 1 tab PO Q8H PRN pain 5 days #14 tabs 03/23/21 [Rx Last Taken Unknown] omeprazole 40 mg capsule,delayed release 40 mg PO DAILY #30 caps 07/28/22 [Rx Last Taken Unknown] Allergy/AdvReac Type Severity Reaction Status Date / Time No Known Allergies Allergy Verified 07/28/22 17:29 Surgical History History of back surgery History of cholecystectomy Social History Smoking Status: Current every day smoker tobacco type: cigarettes ROS ROS ED Constitutional Constitutional ED: Denies chills, fever(s) or sweats Eyes Eyes: Denies change in vision ENT ENT ED: Denies dysphagia or sore throat Cardiovascular Cardiovascular: Reports chest pain; Denies leg edema, palpitations or racing heartbeat Respiratory/Chest Respiratory/Chest: Denies cough, dyspnea or dyspnea on exertion Gastrointestinal Gastrointestinal: Reports abdominal pain and nausea; Denies diarrhea or vomiting Genitourinary Genitourinary ED: Denies dysuria, hematuria or urinary frequency Musculoskeletal Musculoskeletal: Denies back pain, extremity pain or neck pain Integumentary Denies rash or wounds Neurologic Neurologic: Denies headache(s), paresthesias or weakness EXAM Physical Exam Const Vital Signs: 07/28/22 17:30 07/28/22 17:35 07/28/22 17:35 Temperature 97.6 F L Temperature Source Oral Pulse Rate 84 Respiratory Rate 19 H Respiratory Effort Normal Non-Labored Respiratory Pattern Normal Blood Pressure 160/83 H Blood Pressure Mean 108 Pulse Ox 99 Oxygen Delivery Method Room Air 07/28/22 17:35 07/28/22 18:50 Temperature Temperature Source Pulse Rate 84 Respiratory Rate 17 Respiratory Effort Respiratory Pattern Blood Pressure 137/88 H Blood Pressure Mean 104 Pulse Ox 99 95 Oxygen Delivery Method Room Air Room Air Positive well nourished and well developed General Appearance ED: well developed and NAD HEENT Reports moist mucous membranes normocephalic and atraumatic Eyes PERRL, EOMs intact bilaterally and conjunctivae normal General Eye ED: Yes normal appearance of both eyes Neck no lymphadenopathy and supple General: Negative for tenderness Chest Wall Chest: Negative for tenderness Resp normal respiratory effort and normal air movement Effort and Inspection: symmetric chest movement; Negative for respiratory distress Cardio regular rate, regular rhythm and no murmurs Peripheral Pulses: pulses 2+ throughout GI normal to inspection, nondistended, normoactive bowel sounds GI Narrative: Mild epigastric tenderness no guarding or rebound. Negative Deutsch's or McBurney's tenderness. Palpation: Negative for guarding or rebound tenderness present Back/Spine no CVA tenderness and no thoracic nor lumbar tenderness Extremity normal to inspection General Extremety ED: Negative for edema or tenderness General Extremity: Negative for edema Neuro oriented x3 and no sensory deficits noted Sensorium / Orientation: awake and alert Skin no rashes or lesions noted and no wounds MDM MDM MDM Narrative Medical decision making narrative: Patient was resolving. EKG normal cardiac work-up negative chest x-ray 2 views reviewed myself read by radiology as negative. Lipase normal. Liver enzymes mildly elevated ALP AST at 63. Symptoms resolved reevaluation status postcholecystectomy. He is given GI cocktail states really not much improvement. With recurrent symptoms 6 months ago, he is given follow-up with GI is placed on a PPI. Also discussed follow with his PCP for stress test as an outpatient. Return precaution discussed. All questions were answered. Lab Data Attestation: I reviewed the patient's lab results. Labs: Laboratory Results - last 24 hr 07/28/22 07/28/22 07/28/22 17:50 17:50 20:00 WBC 9.6 RBC 5.37 Hgb 17.3 H Hct 50.7 MCV 94.4 H MCH 32.2 H MCHC 34.1 RDW Std Deviation 49.0 H RDW Coeff of Digna 14.1 Plt Count 278 MPV 10.0 Immature Gran % (Auto) 0.400 Neut % (Auto) 55.1 Lymph % (Auto) 36.7 [place] % (Auto) 6.0 Eos % (Auto) 1.3 Baso % (Auto) 0.5 Absolute Neuts (auto) 5.3 Absolute Lymphs (auto) 3.52 Nucleated RBC % 0 Sodium 140 Potassium 3.4 L Chloride 105 Carbon Dioxide 27.0 Anion Gap 8 BUN 14 Creatinine 1.13 Estim Creat Clear Calc 73.12 Est GFR (MDRD) Af Amer 85 Est GFR (MDRD) Non-Af 70 BUN/Creatinine Ratio 12.4 Glucose 85 Calcium 9.4 Total Bilirubin 0.90 Direct Bilirubin 0.32 H AST 63 H ALT 47 Alkaline Phosphatase 156 H Troponin I High Sens 7 7 Total Protein 7.9 Albumin 4.0 Globulin 3.9 Lipase 131 Radiography Diagnostic Testing: Clinical Impression(s) from Imaging Studies Chest X-Ray 07/28/22 18:00 IMPRESSION: Normal x-ray examination of the chest. Electronically Signed: Francois Peña MD at 18:27 EDT , EKG Initial EKG: Attestation: I personally reviewed and interpreted this EKG as follows: Comments: Sinus rate of 84, no ST or T wave changes. Discharge Plan Triage Chief Complaint: Chest Pain ED Provider: Bennie Pepper Dx/Rx/DC Orders Clinical Impression: Chest pain, Abdominal pain Instructions: Abdominal Pain, ED Chest Pain, Uncertain Cause Prescriptions: New omeprazole 40 mg capsule,delayed release(DR/EC) 40 mg PO DAILY Qty: 30 0RF No Action cyclobenzaprine 10 mg tablet 10 mg PO TID PRN (Reason: Muscle Spasm) Label Comments: TAKE 1 TABLET BY MOUTH THREE TIMES DAILY NEEDED spasms oxycodone-acetaminophen 5-325 mg tablet 1 tab PO DAILY PRN (Reason: Pain) Label Comments: TAKE 1 TABLET BY MOUTH EVERY DAY NEEDED oxycodone-acetaminophen [Percocet] 5-325 mg tablet 1 tab PO Q8H PRN (Reason: pain) 5 Days Qty: 14 0RF Primary Care Provider: Care Physician,No Primary Referrals: Frantz Mcgowan DO [Med Staff - Active Staff] - 1-2 Weeks Osmani Mike MD [Med Staff - Ethylbenzene Converter Helper] - 3-5 Days Care Physician,No Primary [Primary Care Provider] - Disposition Disposition: Home, Self Care
[2022-07-28 18:23] LABS: Absolute Lymphocyte Count 3.52 X10^3/uL (0.83-4.51); Absolute Neutrophil Count 5.3 X10^3/uL (2.0-7.7); Basophil# 0.05 X10^3/uL; Basophil% 0.5 % (0-1); Eosinophil# 0.12 X10^3/uL; Eosinophils% 1.3 % (0-5); Hematocrit 50.7 % (40-54); Hemoglobin 17.3 g/dL (13.0-16.5); Lymphocyte # 3.52 X10^3/ul (0.83-4.51); Lymphocyte % 36.7 % (19-41); Mean Corp Hgb Conc 34.1 g/dL (32-36); Mean Corpuscular Hgb 32.2 pg (27.0-32.0); Mean Corpuscular Volume 94.4 fL (80-94); Monocyte# 0.58 X10^3/uL; NRBC Flagged by Analyzer 0 % (0-5); Neutrophil # 5.29 X10^3/uL (2.7-7.7); Neutrophil % 55.1 % (47-70); Platelet Count 278 K/mm3 (150-450); RBC Distribution Width CV 14.1 % (11.6-14.6); Red Blood Count 5.37 M/mm3 (4.6-6.2); White Blood Count 9.6 K/mm3 (4.4-11.0)
[2022-07-28] MEDS: 0.9% Normal Saline 1,000 ML 1000 ML IV (18:31)
[2022-07-28] MEDS: Mag Hydrox/Al Hydrox/Simeth 30 ML UDC PO (18:32)
[2022-07-28 18:36] LABS: AST(SGOT) 63 U/L (15-37); Alanine Aminotransfer ALT/SGPT 47 U/L (16-61); Alkaline Phosphatase 156 U/L (45-117); Anion Gap 8 (5-15); BUN 14 mg/dL (7-18); BUN/Creat Ratio 12.4 RATIO (10-20); Bilirubin, Direct 0.32 mg/dL (0.00-0.30); Calcium,Total 9.4 mg/dL (8.5-10.1); Chloride 105 mmol/L (98-107); Creatinine, Serum 1.13 mg/dL (0.70-1.30); EST Glomerular Filtration Rate 70 mL/min (>60); Est Glom Filt Rate - Afr Amer 85 mL/min (>60); Estimated Creatinine Clearance 73.12 ml/min; Globulin 3.9 g/dL (2.2-4.2); Glucose 85 mg/dL (74-106); Lipase 131 U/L (73-393); Potassium 3.4 mmol/L (3.5-5.1); Protein, Total 7.9 g/dL (6.4-8.2); Sodium Level 140 mmol/L (136-145); Troponin-I HS (w/2H Reflex) 7 pg/mL (3.0-78.0)
[2022-07-28 18:50] VITALS: BP 137/88; PULSE 84; RESP 17; O2SAT 95
[2022-07-28 20:13] LABS: Reflex Troponin-HS? (from REC) Y
[2022-07-28 20:51] LABS: Troponin-I HS 7 pg/mL (3.0-78.0)
[2022-07-28 21:40] VITALS: BP 137/88; PULSE 72; RESP 15; O2SAT 99
== END 2022-07-28 21:42 | disposition home or self-care (01) ==
PROVIDERS: Emergency Provider Emergency Medicine; Visit Provider Emergency Medicine
DX: R07.9 Chest pain, unspecified (principal); G89.29 Other chronic pain; R10.9 Unspecified abdominal pain; F17.210 Nicotine dependence, cigarettes, uncomplicated; M54.9 Dorsalgia, unspecified
CPT/HCPCS: 80048; 83690; 85025; 71046; 80076; 84484; 99285; J7030; A4216

== ENCOUNTER 2022-07-30 11:47 | Inpatient (IN) | payer MEDICAID, SELFPAY ==
[2022-07-30 11:48] VITALS: BP 174/107; PULSE 98; RESP 18; TEMP 36.4; O2SAT 98; BMI 27.1
--- NOTE | 2022-07-30 12:10 | ED.VIS.GI ---
HPI HPI - GI History of Present Illness Chief Complaint: Abd Pain Informant: patient Abdominal Pain/Flank Pain Onset: Days (3) Context: Sudden Onset Timing: Continuous and Waxes and wanes Quality: Sharp Location: Diffuse and Epigastric Worsened by: - (Deep breathing) Relieved by: Nothing Nausea/Vomiting/Emesis GI Symptom: Negative for Nausea or Vomiting Diarrhea/Melena/Hematochezia GI Symptom: Negative for Diarrhea, Melena or Hematochezia Associated Symptoms Associated Symptoms: Positive for Hematuria; Negative for Dysuria or Frequency Narrative Narrative: Patient presents with abdominal pain that has been getting worse over the last 3 days. Patient states it began rather suddenly. Patient states that has been constant but waxing and waning over the last 3 days. Patient states it is diffuse across his abdomen but worse over the epigastric area. Patient states it feels similar to when he had gallstones prior to his cholecystectomy. Patient describes the pain as sharp. Patient states it is worse whenever he takes a deep breath. Patient states nothing seems to help with it. Patient denies any fevers or chills. Patient does admit to some hematuria. Patient denies any dysuria. PFSH PFSH Medical History Chronic pain Degenerative disc disease Migraines Restless legs Sleep apnea Smoker Home Medications cyclobenzaprine 10 mg tablet 10 mg PO TID PRN Muscle Spasm 03/22/21 [History Last Taken Unknown] oxycodone-acetaminophen 5 mg-325 mg tablet 1 tab PO DAILY PRN Pain 03/22/21 [History Last Taken Unknown] oxycodone-acetaminophen 5 mg-325 mg tablet (Percocet) 1 tab PO Q8H PRN pain 5 days #14 tabs 03/23/21 [Rx Last Taken Unknown] omeprazole 40 mg capsule,delayed release 40 mg PO DAILY #30 caps 07/28/22 [Rx Last Taken Unknown] Allergy/AdvReac Type Severity Reaction Status Date / Time No Known Allergies Allergy Verified 07/30/22 11:48 Surgical History History of back surgery History of cholecystectomy Social History Smoking Status: Current every day smoker tobacco type: cigarettes ROS ROS ED Constitutional Constitutional ED: Denies chills or fever(s) Eyes Eyes: Denies blurry vision or change in vision ENT ENT ED: Denies rhinorrhea or sore throat Cardiovascular Cardiovascular: Denies chest pain or palpitations Respiratory/Chest Respiratory/Chest: Denies cough or dyspnea Gastrointestinal Gastrointestinal: Reports abdominal pain; Denies nausea or vomiting Genitourinary Genitourinary ED: Reports hematuria; Denies dysuria Musculoskeletal Musculoskeletal: Denies back pain or neck pain Integumentary Denies abscess or rash Neurologic Neurologic: Reports headache(s); Denies weakness Allergic/Immunologic Allergic/Immunologic ED: Denies mouth swelling or urticaria EXAM Physical Exam Const Vital Signs: 07/30/22 11:48 07/30/22 15:39 Temperature 97.5 F L 97.9 F Temperature Source Temporal Temporal Pulse Rate 98 85 Respiratory Rate 18 18 Blood Pressure 174/107 H 141/81 H Blood Pressure Mean 129 101 Pulse Ox 98 99 Oxygen Delivery Method Room Air Room Air Positive well nourished and well developed General Appearance ED: well developed and NAD HEENT Reports moist mucous membranes Neck supple and no JVD Resp normal respiratory effort and clear to auscultation bilaterally Cardio regular rate, regular rhythm and no murmurs GI normal to inspection, nondistended, normoactive bowel sounds Palpation: soft and tender epigastric, LUQ and RUQ; Negative for guarding or rebound tenderness present Extremity normal to inspection General Extremety ED: Negative for edema or tenderness General Extremity: Negative for edema Neuro oriented x3, CN's II-XII intact bilaterally and no sensory deficits noted Sensorium / Orientation: alert Motor Exam: strength 5/5 throughout Psych mental status grossly normal Skin no rashes or lesions noted MDM MDM MDM Narrative Medical decision making narrative: Patient was given IV fluids, morphine, and Zofran. CBC shows a slight leukocytosis of 11.8. Comprehensive metabolic profile shows a total bilirubin of 7.3, AST of 251, ALT of 444, and alk phos of 343. Lipase was normal. Urinalysis does not show any evidence of urinary tract infection or hematuria. CT scan of the abdomen and pelvis was obtained. There is a severely contracted gallbladder and evidence of cholecystitis. This was interpreted by the radiologist and reviewed by myself. Radiologist recommended correlation with MRCP. Since the patient had a cholecystectomy, case was discussed with Dr. Gore from general surgery. He was in to evaluate the patient. He recommended obtaining a right upper quadrant ultrasound. This was ordered. He also recommended starting Zosyn. He recommended admitting the patient to the hospitalist and consulting with Dr. Mcgowan from gastroenterology for possible ERCP. Case was discussed with the hospitalist. He will admit the patient to his service. Case was discussed with Dr. Mcgowan. He will see the patient in consultation. He will do an ERCP if necessary. Patient understood and was agreeable with the plan. All questions were answered. Lab Data Attestation: I reviewed the patient's lab results. Labs: Laboratory Results - last 24 hr 07/30/22 07/30/22 07/30/22 12:23 12:23 14:10 WBC 11.8 H RBC 5.61 Hgb 17.8 H Hct 52.9 MCV 94.3 H MCH 31.7 MCHC 33.6 RDW Std Deviation 49.3 H RDW Coeff of Digna 14.2 Plt Count 256 MPV 9.6 Immature Gran % (Auto) 0.700 Neut % (Auto) 78.3 H Lymph % (Auto) 14.0 L [place] % (Auto) 6.4 Eos % (Auto) 0.3 Baso % (Auto) 0.3 Absolute Neuts (auto) 9.2 H Absolute Lymphs (auto) 1.64 Nucleated RBC % 0 Sodium 137 Potassium 4.0 Chloride 99 Carbon Dioxide 28.0 Anion Gap 10 BUN 9 Creatinine 1.15 Estim Creat Clear Calc 71.84 Est GFR (MDRD) Af Amer 83 Est GFR (MDRD) Non-Af 69 BUN/Creatinine Ratio 7.8 L Glucose 122 H Calcium 9.5 Total Bilirubin 7.30 H AST 251 H ALT 444 H Alkaline Phosphatase 343 H Total Protein 7.7 Albumin 3.6 Globulin 4.1 Albumin/Globulin Ratio 0.9 Lipase 103 Urine Color Yellow Urine Clarity Clear Urine pH 7.0 Ur Specific [place] 1.010 Urine Protein Negative Urine Glucose (UA) Normal Urine Ketones 15 H Urine Occult Blood 25 H Urine Nitrite Negative Urine Bilirubin 1 H Urine Urobilinogen 1 H Ur Leukocyte Esterase 25 H Urine RBC 0-5 SEEN Urine WBC 0 SEEN Ur Squamous Epith Cells 0 SEEN Urine Bacteria 0 SEEN Urine Mucus 0 SEEN Radiography Diagnostic Testing: Clinical Impression(s) from Imaging Studies Abdomen/Pelvis CT 07/30/22 12:14 IMPRESSION: Suspect acute cholecystitis with a severely contracted gallbladder. Clinical correlation and MRCP may be useful. Electronically Signed: Francois Peña MD at 14:34 EDT , Discharge Plan Triage Chief Complaint: Abd Pain ED Provider: Mario Baker Dx/Rx/DC Orders Clinical Impression: Abdominal pain, Hyperbilirubinemia, Elevated liver transaminase level Prescriptions: No Action cyclobenzaprine 10 mg tablet 10 mg PO TID PRN (Reason: Muscle Spasm) Label Comments: TAKE 1 TABLET BY MOUTH THREE TIMES DAILY NEEDED spasms oxycodone-acetaminophen 5-325 mg tablet 1 tab PO DAILY PRN (Reason: Pain) Label Comments: TAKE 1 TABLET BY MOUTH EVERY DAY NEEDED oxycodone-acetaminophen [Percocet] 5-325 mg tablet 1 tab PO Q8H PRN (Reason: pain) 5 Days Qty: 14 0RF omeprazole 40 mg capsule,delayed release(DR/EC) 40 mg PO DAILY Qty: 30 0RF Primary Care Provider: Care Physician,No Primary Referrals: Care Physician,No Primary [Primary Care Provider] - Disposition Disposition: Acute Care Hospital [facility]
--- NOTE | 2022-07-30 12:14 | CT_ITS ---
STUDY: CT ABDOMEN AND PELVIS WITH CONTRAST REASON FOR EXAM: Male, 61 years old. Abdominal pain -- IV PO Contrast RADIATION DOSAGE (If Supplied By Facility): CTDIvol = ( 15.18 ) mGy, DLP = ( 954.56 ) mGycm TECHNIQUE: Transaxial images were obtained from the dome of the diaphragm to the symphysis pubis with oral contrast. Oral and amp; IV Gastrografin and amp; 100mL Isovue-370 was administered. Sagittal and coronal images were reconstructed. Individualized dose optimization techniques were used for this CT. COMPARISON: 03/22/2021 FINDINGS: The visualized lung bases are unremarkable. Small pericardial effusion. Normal liver. Severely contracted gallbladder with stranding of the surrounding fat worrisome for acute cholecystitis. MRCP may be useful. Normal spleen. Normal pancreas. Normal bilateral adrenal glands. Normal right kidney. 3 mm nonobstructing stone lower pole the left kidney. No hydronephrosis, ureteral stone, ureteral dilatation. Normal visualized stomach. Normal small intestine. There are multiple colonic diverticula consistent with diverticulosis. The appendix is visualized and appears normal. Normal abdominal aorta. Normal inferior vena cava. Normal retroperitoneum. Normal urinary bladder. There is a small umbilical hernia containing fat. Normal osseous structures. CT/Abdomen/Pelvis WITH Contrast IMPRESSION: Suspect acute cholecystitis with a severely contracted gallbladder. Clinical correlation and MRCP may be useful. Electronically Signed: Francois Peña MD at 14:34 EDT ,
[2022-07-30 12:30] LABS: Absolute Lymphocyte Count 1.64 X10^3/uL (0.83-4.51); Absolute Neutrophil Count 9.2 X10^3/uL (2.0-7.7); Basophil# 0.04 X10^3/uL; Basophil% 0.3 % (0-1); Eosinophil# 0.04 X10^3/uL; Eosinophils% 0.3 % (0-5); Hematocrit 52.9 % (40-54); Hemoglobin 17.8 g/dL (13.0-16.5); Lymphocyte # 1.64 X10^3/ul (0.83-4.51); Mean Corp Hgb Conc 33.6 g/dL (32-36); Mean Corpuscular Hgb 31.7 pg (27.0-32.0); Mean Corpuscular Volume 94.3 fL (80-94); Mean Platelet Vol. 9.6 fl (6.2-12.0); Monocyte# 0.75 X10^3/uL; Monocyte% 6.4 % (0-10); NRBC Flagged by Analyzer 0 % (0-5); Neutrophil % 78.3 % (47-70); Platelet Count 256 K/mm3 (150-450); RBC Distribution Width CV 14.2 % (11.6-14.6); RBC Distribution Width SD 49.3 fl (35.1-43.9); Red Blood Count 5.61 M/mm3 (4.6-6.2); White Blood Count 11.8 K/mm3 (4.4-11.0)
[2022-07-30] MEDS: 0.9% Normal Saline 1,000 ML 1000 ML IV (12:35)
[2022-07-30] MEDS: Ondansetron 4 MG/2 ML Vial IV (12:35)
[2022-07-30] MEDS: Morphine 4 MG/ML Syringe IV ×2 (12:35→15:38)
[2022-07-30 12:46] LABS: ALB/GLOB Ratio 0.9 RATIO (0.9-2.4); AST(SGOT) 251 U/L (15-37); Alanine Aminotransfer ALT/SGPT 444 U/L (16-61); Albumin, Serum 3.6 g/dL (3.2-5.0); Alkaline Phosphatase 343 U/L (45-117); Anion Gap 10 (5-15); BUN 9 mg/dL (7-18); BUN/Creat Ratio 7.8 RATIO (10-20); Calcium,Total 9.5 mg/dL (8.5-10.1); Chloride 99 mmol/L (98-107); Creatinine, Serum 1.15 mg/dL (0.70-1.30); EST Glomerular Filtration Rate 69 mL/min (>60); Est Glom Filt Rate - Afr Amer 83 mL/min (>60); Estimated Creatinine Clearance 71.84 ml/min; Globulin 4.1 g/dL (2.2-4.2); Glucose 122 mg/dL (74-106); Lipase 103 U/L (73-393); Protein, Total 7.7 g/dL (6.4-8.2); Sodium Level 137 mmol/L (136-145)
[2022-07-30 14:18] LABS: Bacteria 0 SEEN /hpf (None Seen); Mucous, Urine 0 SEEN /hpf (<or=2+); Squamous Epithelial Cells - UA 0 SEEN /hpf (0-5); White Blood Cells 0 SEEN /hpf (0-5)
[2022-07-30 14:20] LABS: Color, Urine Yellow (Yellow); Glucose, Dipstick Normal (Normal); Ketone-Dipstick 15 mg/dl (Negative); Leukocyte Esterase-Dipstick 25 /ul (Negative); Nitrite-Dipstick Negative (Negative); Occult Blood-Urine 25 /ul (Negative); Protein-Dipstick Negative (Negative); Urine Clarity Clear (Clear); Urine Urobilinogen 1 mg/dl (Normal)
[2022-07-30 14:25] LABS: Urine Bilirubin Dipstick 1 mg/dL (Negative)
[2022-07-30 14:31] LABS: Red Blood Cells-Urine 0-5 SEEN /hpf (0-5)
[2022-07-30 15:39] VITALS: BP 141/81; PULSE 85; RESP 18; TEMP 36.6; O2SAT 99
--- NOTE | 2022-07-30 16:17 | US_ITS ---
STUDY: ABDOMINAL ULTRASOUND - RIGHT UPPER QUADRANT REASON FOR VISIT: Male, 61 years old PAIN TECHNIQUE: Ultrasound evaluation of the right upper quadrant was performed with real-time and static link-scale imaging. TECHNICAL QUALITY: Adequate. COMPARISON: CT earlier today FINDINGS: Liver: The liver measures 13.5 cm. There is normal echogenicity of the liver. The bile ducts are dilated. There is hepatic color flow. The direction of portal flow is hepatopetal. There is no demonstrated mass lesion. Gallbladder: The patient is status post cholecystectomy.. Common Bile Duct (C.B.D.): The common bile duct measures 7 mm. Pancreas: Normal size of the head, body and tail of the pancreas. There is normal echogenicity of the pancreas. There is no demonstrated pancreatic mass or cyst. Right Kidney: Normal size of the right kidney. The right kidney measures 11.0 cm. Normal renal cortex. The right cortex measures 1.3 cm. There is no demonstrated renal mass or cyst. There is no right hydronephrosis. US/Gallbladder IMPRESSION: Status post cholecystectomy with mild biliary ductal dilatation. Electronically Signed: Francois Peña MD at 17:49 EDT ,
--- NOTE | 2022-07-30 16:42 | HP.PCM_ITS ---
[facility] - General General Date of Service: 07/30/22 Chief Complaint: Acute onset severe upper abdominal pain HPI Narrative HIWOT DELCID, is a 61 M, with past medical history of obstructive sleep apnea and smoking and past surgical history with laparoscopic cholecystectomy and back operation, who presents for complaints of acute onset upper abdominal pain. He reports that this is his third episode since his surgery for his gallbladder in March 2021. He states previously he has been worked up for cardiac causes of this pain which has been negative but within a day's time he spontaneously feels better. He reports feeling pain below his sternum that he describes as a squeezing. He denies any associated nausea, but admits that he has not eaten in 3 days because he feels bloated and has no appetite. He is also not had a bowel movement in the same 3 days. He specifically denies any itching or rash. Patient's emergency department work-up is remarkable for CBC that shows a leukocytosis of 11.8, evidence of hemoconcentration with a hemoglobin of 17.8, and his CMP demonstrates a cholestatic pattern to his LFTs and there is hyperbilirubinemia with a T bili of 7.3. CT imaging was obtained of the abdomen and pelvis which was read as concerning for acute cholecystitis and a severely contracted gallbladder. Radiology recommended MRCP for possible linn racterization. Surgery was asked to evaluate the patient based on his surgical history and present work-up results. PFSH Medical History Chronic pain Degenerative disc disease Migraines Restless legs Sleep apnea Smoker Home Medications cyclobenzaprine 10 mg tablet 10 mg PO TID PRN Muscle Spasm 03/22/21 [History Last Taken Unknown] oxycodone-acetaminophen 5 mg-325 mg tablet 1 tab PO DAILY PRN Pain 03/22/21 [History Last Taken Unknown] oxycodone-acetaminophen 5 mg-325 mg tablet (Percocet) 1 tab PO Q8H PRN pain 5 days #14 tabs 03/23/21 [Rx Last Taken Unknown] omeprazole 40 mg capsule,delayed release 40 mg PO DAILY #30 caps 07/28/22 [Rx Last Taken Unknown] Allergy/AdvReac Type Severity Reaction Status Date / Time No Known Allergies Allergy Verified 07/30/22 11:48 Surgical History History of back surgery History of cholecystectomy Social History Smoking Status: Current every day smoker tobacco type: cigarettes ROS Constitutional Constitutional: Reports anorexia; Denies fever(s) Gastrointestinal Gastrointestinal: Reports abdominal pain and constipation; Denies nausea or vomiting Integumentary Integumentary: Denies pruritus or rash Vital Signs Vital Signs Vital Signs: 07/30/22 11:48 07/30/22 15:39 Temperature 97.5 F L 97.9 F Temperature Source Temporal Temporal Pulse Rate 98 85 Respiratory Rate 18 18 Blood Pressure 174/107 H 141/81 H Blood Pressure Mean 129 101 Pulse Ox 98 99 Oxygen Delivery Method Room Air Room Air Weight Weight: 195 lb Body Mass Index (BMI) 27.1 Physical Exam Const alert and oriented x3 Constitutional Narrative: Mild distress from abdominal discomfort General Appearance: cooperative Resp normal respiratory effort GI GI Narrative: Chronic?appearing subcutaneous mass in patient's left upper quadrant to the left of his xiphoid process (patient states this has been there since fourth grade) p atient with laparoscopic port sites in right upper quadrant and a midline incision extending from his umbilicus to his pubis from prior back surgery. All of these appear well-healed. Patient is nondistended. Patient is tender with palpation?particularly of the right upper quadrant and epigastrium, but there is negative Deutsch sign Results Lab / Micro Data Result Diagrams: 07/30/22 12:23 07/30/22 12:23 Labs: Laboratory Results - last 24 hr 07/30/22 12:23: WBC 11.8 H, RBC 5.61, Hgb 17.8 H, Hct 52.9, MCV 94.3 H, MCH 31.7, MCHC 33.6, RDW Std Deviation 49.3 H, RDW Coeff of Digna 14.2, Plt Count 256, MPV 9.6, Immature Gran % (Auto) 0.700, Neut % (Auto) 78.3 H, Lymph % (Auto) 14.0 L, [place] % (Auto) 6.4, Eos % (Auto) 0.3, Baso % (Auto) 0.3, Absolute Neuts (auto) 9.2 H, Absolute Lymphs (auto) 1.64, Nucleated RBC % 0 07/30/22 12:23: Sodium 137, Potassium 4.0, Chloride 99, Carbon Dioxide 28.0, Anion Gap 10, BUN 9, Creatinine 1.15, Estim Creat Clear Calc 71.84, Est GFR (MDRD) Af Amer 83, Est GFR (MDRD) Non-Af 69, BUN/Creatinine Ratio 7.8 L, Glucose 122 H, Calcium 9.5, Total Bilirubin 7.30 H, AST 251 H, ALT 444 H, Alkaline Phosphatase 343 H, Total Protein 7.7, Albumin 3.6, Globulin 4.1, Albumin/Globulin Ratio 0.9, Lipase 103 07/30/22 14:10: Urine Color Yellow, Urine Clarity Clear, Urine pH 7.0, Ur Specific [place] 1.010, Urine Protein Negative, Urine Glucose (UA) Normal, Urine Ketones 15 H, Urine Occult Blood 25 H, Urine Nitrite Negative, Urine Bilirubin 1 H, Urine Urobilinogen 1 H, Ur Leukocyte Esterase 25 H, Urine RBC 0-5 SEEN, Urine WBC 0 SEEN, Ur Squamous Epith Cells 0 SEEN, Urine Bacteria 0 SEEN, Urine Mucus 0 SEEN Radiology Impression Abdomen/Pelvis CT 07/30/22 12:14 IMPRESSION: Suspect acute cholecystitis with a severely contracted gallbladder. Clinical correlation and MRCP may be useful. Electronically Signed: Francois Peña MD at 14:34 EDT , Assessment & Plan Assessment/Plan (1) Elevated liver transaminase level: (2) Hyperbilirubinemia: (3) Abdominal pain: (4) Common bile duct dilatation: (5) Status post cholecystectomy: PLAN: Plan This is a 61-year-old male with past history of cholecystectomy who presents for acute onset abdominal pain, anorexia, and constipation. ER work-up is notable for leukocytosis, and markedly abnormal CMP with cholestatic pattern to liver function enzymes and hyperbilirubinemia. CT of the abdomen pelvis was read by radiology as concerning for possible acute cholecystitis around a severely contracted gallbladder. In review of the chart, patient underwent laparoscopic cholecystectomy with Dr. Salcedo March 22, 2021. This operative report describes a severely edematous gallbladder and difficulty with proximal dissection near the gallbladder infundibulum. Although cystic duct ligation is described in this report, pathology conspicuously reports that there is no obvious cystic duct present in the specimen. Therefore I suspect patient may have a gallbladder remnant and intact cystic duct?much ayush to a subtotal cholecystectomy?with now probable choledocholithiasis. This accord well with my independent review of the patient's CT imaging which demonstrates a dilated biliary tree. Based on this impression I recommend the following: ? Right upper quadrant ultrasound stat ? Begin empiric antibiotic therapy for obstructed duct with enteric coverage ? N.p.o. past midnight ? Hospital admission with GI consultation (I notified Dr. Mcgowan with gastroenterology of patient's background and current findings) for consideration of ERCP with possible stone removal/stenting
[2022-07-30 16:47] VITALS: BP 141/81; PULSE 85; RESP 18; TEMP 36.6; O2SAT 99
--- NOTE | 2022-07-30 17:00 | NURSING ---
[address] UPPER QUAD ABD PAIN, HYPERBILIRUBINEMIA
--- NOTE | 2022-07-30 17:39 | HP.PCM.HOS_ITS ---
HPI - General General Date of Admission: 07/30/22 Date of Service: 07/30/22 Chief Complaint: Upper abdominal pain for 3 days along with loss of appetite. No fever HPI Narrative HIWOT DELCID, is a 61 M came to ED accompanied with his for upper abdominal pain that is started 3 days ago on Sunday. He stated it started on epigastric/RUQ but then it became generalized. Today it moved to the lower sternal region/chest pain. He denies radiation to the back, arms, shoulder, jaws or neck. No associated shortness of breath, numbness or tingling in arms or finger. No nausea, vomiting or GI bleed. Patient denies fever. Patient had lap miesha by Dr. Salcedo on March 2021. After that patient came to ED twice in April and July for lower chest pain, had negative work-up and was discharged home. Patient also states he is not eating for last 2 days and is mildly constipated with last bowel movement about 2-3 days ago. In ED, vitals was normal range except blood pressure was elevated in triage but got better later on. Labs done in ED was remarkable for elevated liver chemistry, ALT AST, alkaline phosphatase and hyperbilirubinemia mainly direct hyperbilirubinemia. Lipase normal. CT abdomen pelvis was done which reported acute cholecystitis with severely contracted gallbladder but patient had lap miesha as mentioned above. Patient was evaluated by surgeon Dr. Gore in ED and he talked to GI DrBrigida Mcgowan for ERCP. Patient is empirically on IV antibiotic Past medical history: Chronic back pain with lumbar degenerative disc disorder status post 2 back surgeries, last 1 was about 2013. Patient on opioid. He follows pain manag ement Dr. Fernandez. Other comorbidities as mentioned below. Social history: Chronic smoker more than a pack per day since age of [age]. Occasional drinking alcohol. Denies substance use. Family history negative for hepatocellular carcinoma in first-degree family negative. His father had lung cancer. FOR[facility]LY [facility], [facility] Medical History Chronic pain Degenerative disc disease Migraines Restless legs Sleep apnea Smoker Home Medications cyclobenzaprine 10 mg tablet 10 mg PO TID PRN Muscle Spasm 03/22/21 [History Last Taken Unknown] oxycodone-acetaminophen 5 mg-325 mg tablet 1 tab PO DAILY PRN Pain 03/22/21 [History Last Taken Unknown] oxycodone-acetaminophen 5 mg-325 mg tablet (Percocet) 1 tab PO Q8H PRN pain 5 d ays #14 tabs 03/23/21 [Rx Last Taken Unknown] omeprazole 40 mg capsule,delayed release 40 mg PO DAILY #30 caps 07/28/22 [Rx Last Taken Unknown] Allergy/AdvReac Type Severity Reaction Status Date / Time No Known Allergies Allergy Verified 07/30/22 11:48 Surgical History History of back surgery History of cholecystectomy Social History Smoking Status: Current every day smoker tobacco type: cigarettes ROS ROS Narrative Constitutional: Reports fatigue and weakness. No fever HEENT: Reports systems reviewed and no addt'l complaints, except as documented Respiratory/Chest: No shortness of breath at rest or exertion. Lower sternal chest pain as described in HPI Gastrointestinal: Denies coffee ground emesis, hematemesis or vomiting. Rest as described in HPI- Genitourinary: Denies burning urination or new urinary tract symptoms Musculoskeletal: Reports chronic lumbar spine joint pain and limited range of motion. Rest as described in HPI. Neurologic: Denies seizure-like activity. No focal deficit. skin: No ulcer. No rash Endocrinology: Reports systems reviewed and no addt'l complaints, except as documented Hematologic/Lymphatic: Reports systems reviewed and no addt'l complaints, except as documented Rest 14 ROS are negative except as mentioned in HPI Vital Signs Vital Signs Vital Signs: 07/30/22 11:48 07/30/22 15:39 07/30/22 16:47 Temperature 97.5 F L 97.9 F 97.9 F Temperature Source Temporal Temporal Temporal Pulse Rate 98 85 85 Respiratory Rate 18 18 18 Blood Pressure 174/107 H 141/81 H 141/81 H Blood Pressure Mean 129 101 101 Pulse Ox 98 99 99 Oxygen Delivery Method Room Air Room Air Room Air Weight Weight: 195 lb Body Mass Index (BMI) 27.1 Physical Exam Narrative General: Alert, Oriented x3, Cooperative HEENT: Atraumatic, PERRLA, EOMI, Normocephalic Oral: Oral mucosa dry. No Gingival or Mucosal Lesions/ Ulcerations Neck: Supple, No JVD, Negative Carotid Bruits Lungs: Air entry diminished in bilateral lung bases. No crepitation/rhonchi Cardiovascular: Regular rate, Regular Rhythm, Normal S1, Normal S2, No murmurs Abdomen: Soft, tenderness present over epigastric and right upper quadrant region. Mild voluntary guarding over RUQ. No rigidity. No palpable mass. No distention. Bowel Sounds Present : No renal angle tenderness. No suprapubic tenderness. Extremities: No edema, Capillary Refill Less than 3 Seconds Skin: No rashes, No breakdown Musculoskeletal/spine: Tenderness present over lumbar spine. Surgical scar over lower back and abdomen for back surgery.No Tenderness to Palpation of Joints or Extremities Neurological: Cranial nerves II-XII grossly intact, DTR 2+/4 and Symmetrical, Neuro grossly intact Psych/Mental Status: Normal Affect, Appropriate. Results Lab / Micro Data Result Diagrams: 07/30/22 12:23 07/30/22 12:23 Labs: Laboratory Results - last 24 hr 07/30/22 12:23: WBC 11.8 H, RBC 5.61, Hgb 17.8 H, Hct 52.9, MCV 94.3 H, MCH 31.7, MCHC 33.6, RDW Std Deviation 49.3 H, RDW Coeff of Digna 14.2, Plt Count 256, MPV 9.6, Immature Gran % (Auto) 0.700, Neut % (Auto) 78.3 H, Lymph % (Auto) 14.0 L, [place] % (Auto) 6.4, Eos % (Auto) 0.3, Baso % (Auto) 0.3, Absolute Neuts (auto) 9.2 H, Absolute Lymphs (auto) 1.64, Nucleated RBC % 0 07/30/22 12:23: Sodium 137, Potassium 4.0, Chloride 99, Carbon Dioxide 28.0, Anion Gap 10, BUN 9, Creatinine 1.15, Estim Creat Clear Calc 71.84, Est GFR (MDRD) Af Amer 83, Est GFR (MDRD) Non-Af 69, BUN/Creatinine Ratio 7.8 L, Glucose 122 H, Calcium 9.5, Total Bilirubin 7.30 H, AST 251 H, ALT 444 H, Alkaline Phosphatase 343 H, Total Protein 7.7, Albumin 3.6, Globulin 4.1, Albumin/Globulin Ratio 0.9, Lipase 103 07/30/22 14:10: Urine Color Yellow, Urine Clarity Clear, Urine pH 7.0, Ur Specific [place] 1.010, Urine Protein Negative, Urine Glucose (UA) Normal, Urine Ketones 15 H, Urine Occult Blood 25 H, Urine Nitrite Negative, Urine Bilirubin 1 H, Urine Urobilinogen 1 H, Ur Leukocyte Esterase 25 H, Urine RBC 0-5 SEEN, Urine WBC 0 SEEN, Ur Squamous Epith Cells 0 SEEN, Urine Bacteria 0 SEEN, Urine Mucus 0 SEEN Radiology Impression Abdomen/Pelvis CT 07/30/22 12:14 IMPRESSION: Suspect acute cholecystitis with a severely contracted gallbladder. Clinical correlation and MRCP may be useful. Electronically Signed: Francois Peña MD at 14:34 EDT , Assessment & Plan Assessment/Plan (1) Abdominal pain: (2) Common bile duct dilatation: PLAN: Plan This is a 61-year-old question admitted for abdominal pain, abnormal liver chemistry with cholestatic hepatitis and direct hyperbilirubinemia suspected of choledocholithiasis/obstructive surgical jaundice 1. Abdominal pain with cholestatic hepatitis most probably choledocholithiasis: [facility] Patient also had GB ultrasound which shows 7 mm CBD dilatation. Liver normal echogenicity, size 13.5 cm. Hepatopetal portal flow. No mass lesion. Normal size and echogenicity of pancreas. Patient seen by surgeon. GI is consulted for anticipated ERCP. Patient is started on empiric antibiotic IV Zosyn for cholestatic hepatitis. P atient does not have fever now. IV fluid D5 half NS, antiemetic, pain control as needed. Stool softener MiraLAX and senna S ordered. Hypophosphatemia: IV K- Phos is ordered 2. Chronic back pain with history of lumbar degenerative disc disorder status post 2 lumbar spine surgeries: Patient follows Dr. Fernandez. On Percocet and cyclobenzaprine at home. Oxycodone started and cyclobenzaprine continued. PT OT ordered. 3. Obstructive sleep apnea on CPAP: CPAP ordered. 4. History of chronic cough and smoking: As per patient was told of suspicion of COPD based on chest imaging in the past. Never had PFT. Advised PFT as an outpatient. Advised quitting smoking. Nicotine ordered. 5. Other comorbidities include migraine and restless leg syndrome: Patient not on any medication for that. Currently patient does not have headache. VTE prophylaxis: Moderate risk: Heparin 5000 units subcutaneous every 12 hourly. Hold heparin prior to ERCP. Bilateral SCDs Total time of the visit including total time spent in counseling or coordination of care, (more than 50% of the total time, spent in obtaining medical information from nurses and other ancillary care providers,explaining to the patient about labs, imaging, diagnosis and management of active complex medical conditions), discussion with consultants, review of labs and imaging is 40 minutes. Living will/advanced directive/end of life care: Patient does not have living will or advanced directive. 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 After discussion of benefits/risks procedures involved with full code, DNR CC arrest and DNR CC, the patient opted for full code. Patient does want artificial life support including intubation, tube feed, ventilator and/chest compression, central venous catheter, vasopressor and DC shock if needed Total time spent in [id number] encounter in discussion of advanced directive 16 minutes. Laboratory Results 07/30/22 12:23: WBC 11.8 H, RBC 5.61, Hgb 17.8 H, Hct 52.9, MCV 94.3 H, MCH 31.7, MCHC 33.6, RDW Std Deviation 49.3 H, RDW Coeff of Digna 14.2, Plt Count 256, MPV 9.6, Immature Gran % (Auto) 0.700, Neut % (Auto) 78.3 H, Lymph % (Auto) 14.0 L, [place] % (Auto) 6.4, Eos % (Auto) 0.3, Baso % (Auto) 0.3, Absolute Neuts (auto) 9.2 H, Absolute Lymphs (auto) 1.64, Nucleated RBC % 0 07/30/22 12:23: Sodium 137, Potassium 4.0, Chloride 99, Carbon Dioxide 28.0, Anion Gap 10, BUN 9, Creatinine 1.15, Estim Creat Clear Calc 71.84, Est GFR (MDRD) Af Amer 83, Est GFR (MDRD) Non-Af 69, BUN/Creatinine Ratio 7.8 L, Glucose 122 H, Calcium 9.5, Total Bilirubin 7.30 H, AST 251 H, ALT 444 H, Alkaline Phosphatase 343 H, Total Protein 7.7, Albumin 3.6, Globulin 4.1, Albumin/Globulin Ratio 0.9, Lipase 103 07/30/22 12:23: Phosphorus 1.3 L, Magnesium 2.1 07/30/22 14:10: Urine Color Yellow, Urine Clarity Clear, Urine pH 7.0, Ur Specific [place] 1.010, Urine Protein Negative, Urine Glucose (UA) Normal, Urine Ketones 15 H, Urine Occult Blood 25 H, Urine Nitrite Negative, Urine Bilirubin 1 H, Urine Urobilinogen 1 H, Ur Leukocyte Esterase 25 H, Urine RBC 0-5 SEEN, Urine WBC 0 SEEN, Ur Squamous Epith Cells 0 SEEN, Urine Bacteria 0 SEEN, Urine Mucus 0 SEEN Clinical Impression(s) from Imaging Studies Abdomen/Pelvis CT 07/30/22 12:14 IMPRESSION: Suspect acute cholecystitis with a severely contracted gallbladder. Clinical correlation and MRCP may be useful. Gallbladder Ultrasound 07/30/22 16:17 IMPRESSION: Status post cholecystectomy with mild biliary ductal dilatation. Electronically Signed: Francois Peña MD at 17:49 EDT , Charges/Coding Visit Charges Inpatient E&M: 33105 Init Hosp L3 Procedures Hospitalists Procedures: 90330 Advncd Care Plan 30 Min
[2022-07-30 17:55] LABS: Magnesium 2.1 mg/dL (1.6-2.6); Phosphorus 1.3 mg/dL (2.5-4.9)
[2022-07-30 18:20] VITALS: BP 146/81; PULSE 88; RESP 16; TEMP 36.7; O2SAT 100
[2022-07-30 18:24] VITALS: BMI 26.6
[2022-07-30 18:47] VITALS: O2SAT 98
[2022-07-30] MEDS: KCL 20MEQ in 0.9% NS 20 MEQ/1,000 ML IV.SOLN. 75 MEQ IV (18:51)
[2022-07-30] MEDS: 0.45% Normal Saline 1,000 ML 75 ML IV (19:24)
[2022-07-30] MEDS: 0.9% Saline Lock 10 ML Syringe IV (19:26)
[2022-07-30] MEDS: cycloBENZAPRine HCl 10 MG Tablet PO (19:30)
[2022-07-30] MEDS: oxyCODONE 5 MG Tablet PO (19:30)
[2022-07-30 20:01] LABS: Prothrombin Time (Protime)PT. 12.8 SECONDS (11.7-14.9)
[2022-07-30] MEDS: Heparin Injection (Vial) 5,000 UNIT/ML VIAL 5000 UNIT SC (21:49)
[2022-07-30 21:53] VITALS: BP 134/82; PULSE 86; RESP 18; TEMP 36.7; O2SAT 93
[2022-07-31 03:22] VITALS: BP 129/77; PULSE 83; RESP 18; TEMP 36.8; O2SAT 96
--- NOTE | 2022-07-31 06:00 | EKG12_ITS ---
Test Reason : AM EKG Blood Pressure : / mmHG Vent. Rate : 082 BPM Atrial Rate : 082 BPM P-R Int : 138 ms QRS Dur : 080 ms QT Int : 380 ms P-R-T Axes : 072 001 037 degrees QTc Int : 443 ms Sinus rhythm with Premature atrial complexes Otherwise normal ECG When compared with ECG of 28-JUL-2022 17:23, MANUAL COMPARISON REQUIRED, DATA IS UNCONFIRMED Confirmed by FLO TRISTAN, IGNACIO ([id number]), offline editor FARIBA PANTOJA ([id number]) on 07/31/2022 2:10:43 PM Referred By: Confirmed By:IGNACIO ROSSI MD
[2022-07-31 06:55] LABS: Absolute Lymphocyte Count 1.78 X10^3/uL (0.83-4.51); Absolute Neutrophil Count 4.5 X10^3/uL (2.0-7.7); Basophil# 0.02 X10^3/uL; Basophil% 0.3 % (0-1); Eosinophil# 0.09 X10^3/uL; Eosinophils% 1.3 % (0-5); Hemoglobin 16.2 g/dL (13.0-16.5); Lymphocyte # 1.78 X10^3/ul (0.83-4.51); Lymphocyte % 25.5 % (19-41); Mean Corp Hgb Conc 34.5 g/dL (32-36); Mean Corpuscular Hgb 32.7 pg (27.0-32.0); Mean Corpuscular Volume 94.8 fL (80-94); Mean Platelet Vol. 10.4 fl (6.2-12.0); Monocyte# 0.61 X10^3/uL; Monocyte% 8.7 % (0-10); NRBC Flagged by Analyzer 0 % (0-5); Neutrophil # 4.47 X10^3/uL (2.7-7.7); Neutrophil % 63.9 % (47-70); Platelet Count 186 K/mm3 (150-450); RBC Distribution Width CV 14.6 % (11.6-14.6); RBC Distribution Width SD 50.4 fl (35.1-43.9); Red Blood Count 4.96 M/mm3 (4.6-6.2)
[2022-07-31 07:11] LABS: ALB/GLOB Ratio 0.8 RATIO (0.9-2.4); AST(SGOT) 153 U/L (15-37); Alanine Aminotransfer ALT/SGPT 304 U/L (16-61); Albumin, Serum 2.9 g/dL (3.2-5.0); Alkaline Phosphatase 290 U/L (45-117); Anion Gap 5 (5-15); BUN 7 mg/dL (7-18); BUN/Creat Ratio 6.7 RATIO (10-20); Calcium,Total 8.7 mg/dL (8.5-10.1); Chloride 103 mmol/L (98-107); Creatinine, Serum 1.05 mg/dL (0.70-1.30); EST Glomerular Filtration Rate 76 mL/min (>60); Est Glom Filt Rate - Afr Amer 92 mL/min (>60); Estimated Creatinine Clearance 78.69 ml/min; Globulin 3.6 g/dL (2.2-4.2); Glucose 93 mg/dL (74-106); Potassium 4.9 mmol/L (3.5-5.1); Protein, Total 6.5 g/dL (6.4-8.2); Sodium Level 135 mmol/L (136-145)
[2022-07-31 07:17] LABS: Partial Thromboplast Time 31.7 Seconds (24.1-36.2)
[2022-07-31] MEDS: KCL 20MEQ in 0.9% NS 20 MEQ/1,000 ML IV.SOLN. 75 MEQ IV (07:53)
[2022-07-31] MEDS: 0.45% Normal Saline 1,000 ML 75 ML IV (07:53)
[2022-07-31 08:33] VITALS: BP 139/80; PULSE 75; RESP 16; TEMP 36.4; O2SAT 98
[2022-07-31 09:14] VITALS: BMI 26.6
--- NOTE | 2022-07-31 10:18 | PCM.PN.SRG ---
Subjective Subjective Patient seen and examined during AM rounds. He is found resting in bed and states his abdominal pain is significantly improved. He denies any nausea. He would like to know when he is due to undergo stone removal. Objective Data Objective Data Vital Signs: Vital Signs Temp Pulse Resp BP Pulse Ox O2 Del Method 97.6 F L 75 16 139/80 H 98 Room Air 07/31/22 08:33 07/31/22 08:33 07/31/22 08:33 07/31/22 08:33 07/31/22 08:33 07/31/22 08:33 Oxygen Delivery Method Room Air Weight: 191 lb 2.252 oz Body Mass Index (BMI) 26.6 Intake & Output: Intake and Output for Last 24 Hours 07/29/22 07/30/22 07/31/22 23:59 23:59 23:59 Intake Total 1500 / 1500 1945.00 / 194.00 Balance 1500 / 1500 1945.00 / 1944.00 Lab / Micro Data Result Diagrams: 07/31/22 05:52 07/31/22 05:52 Labs: Laboratory Results - last 24 hr 07/30/22 12:23: WBC 11.8 H, RBC 5.61, Hgb 17.8 H, Hct 52.9, MCV 94.3 H, MCH 31.7, MCHC 33.6, RDW Std Deviation 49.3 H, RDW Coeff of Digna 14.2, Plt Count 256, MPV 9.6, Immature Gran % (Auto) 0.700, Neut % (Auto) 78.3 H, Lymph % (Auto) 14.0 L, [place] % (Auto) 6.4, Eos % (Auto) 0.3, Baso % (Auto) 0.3, Absolute Neuts (auto) 9.2 H, Absolute Lymphs (auto) 1.64, Nucleated RBC % 0 07/30/22 12:23: Sodium 137, Potassium 4.0, Chloride 99, Carbon Dioxide 28.0, Anion Gap 10, BUN 9, Creatinine 1.15, Estim Creat Clear Calc 71.84, Est GFR (MDRD) Af Amer 83, Est GFR (MDRD) Non-Af 69, BUN/Creatinine Ratio 7.8 L, Glucose 122 H, Calcium 9.5, Total Bilirubin 7.30 H, AST 251 H, ALT 444 H, Alkaline Phosphatase 343 H, Total Protein 7.7, Albumin 3.6, Globulin 4.1, Albumin/Globulin Ratio 0.9, Lipase 103 07/30/22 12:23: Phosphorus 1.3 L, Magnesium 2.1 07/30/22 14:10: Urine Color Yellow, Urine Clarity Clear, Urine pH 7.0, Ur Specific [place] 1.010, Urine Protein Negative, Urine Glucose (UA) Normal, Urine Ketones 15 H, Urine Occult Blood 25 H, Urine Nitrite Negative, Urine Bilirubin 1 H, Urine Urobilinogen 1 H, Ur Leukocyte Esterase 25 H, Urine RBC 0-5 SEEN, Urine WBC 0 SEEN, Ur Squamous Epith Cells 0 SEEN, Urine Bacteria 0 SEEN, Urine Mucus 0 SEEN 07/30/22 19:30: PT 12.8, INR 1.0 07/31/22 05:52: WBC 7.0, RBC 4.96, Hgb 16.2, Hct 47.0, MCV 94.8 H, MCH 32.7 H, MCHC 34.5, RDW Std Deviation 50.4 H, RDW Coeff of Digna 14.6, Plt Count 186, MPV 10.4, Immature Gran % (Auto) 0.300, Neut % (Auto) 63.9, Lymph % (Auto) 25.5, [place] % (Auto) 8.7, Eos % (Auto) 1.3, Baso % (Auto) 0.3, Absolute Neuts (auto) 4.5, Absolute Lymphs (auto) 1.78, Nucleated RBC % 0 07/31/22 05:52: Sodium 135 L, Potassium 4.9, Chloride 103, Carbon Dioxide 27.0, Anion Gap 5, BUN 7, Creatinine 1.05, Estim Creat Clear Calc 78.69, Est GFR (MDRD) Af Amer 92, Est GFR (MDRD) Non-Af 76, BUN/Creatinine Ratio 6.7 L, Glucose 93, Calcium 8.7, Total Bilirubin 5.70 H, AST 153 H, ALT 304 H, Alkaline Phosphatase 290 H, Total Protein 6.5, Albumin 2.9 L, Globulin 3.6, Albumin/Globulin Ratio 0.8 L 07/31/22 05:52: APTT 31.7 Radiography Diagnostic Testing: Radiology Impression Abdomen/Pelvis CT 07/30/22 12:14 IMPRESSION: Suspect acute cholecystitis with a severely contracted gallbladder. Clinical correlation and MRCP may be useful. Electronically Signed: Francois Peña MD at 14:34 EDT Reading Location ID and State: [id number] / [email or web address] Tel , Service support , ADDENDUM: 07/30/22 1757 IMPRESSION: undefined Gallbladder Ultrasound 07/30/22 16:17 IMPRESSION: Status post cholecystectomy with mild biliary ductal dilatation. Electronically Signed: Francois Peña MD at 17:49 EDT , Physical Exam Const oriented x3 and no apparent distress Eyes Eyes Narrative: Scleral icterus still present Resp normal respiratory effort GI GI Narrative: Nondistended, soft, minimally tender to palpation in the right upper quadrant Skin Skin Narrative: Improving jaundice General Skin Exam: jaundice Assessment & Plan Assessment/Plan (1) Elevated liver transaminase level: (2) Hyperbilirubinemia: (3) Abdominal pain: (4) Common bile duct dilatation: (5) Status post cholecystectomy: PLAN: Plan This is a 61-year-old male with past history of cholecystectomy who presents for acute onset abdominal pain, anorexia, and constipation. ER work-up is notable for leukocytosis, and markedly abnormal CMP with cholestatic pattern to liver function enzymes and hyperbilirubinemia. CT of the abdomen pelvis was read by radiology as concerning for possible acute cholecystitis around a severely contracted gallbladder. In review of the chart, patient underwent laparoscopic cholecystectomy with Dr. Salcedo March 22, 2021. This operative report describes a severely edematous gallbladder and difficulty with proximal dissection near the gallbladder infundibulum. Although cystic duct ligation is described in this report, pathology conspicuously reports that there is no obvious cystic duct present in the specimen. Therefore I suspect patient may have a gallbladder remnant and intact cystic duct?much ayush to a subtotal cholecystectomy?with now probable choledocholithiasis. This accord well with my independent review of the patient's CT imaging which demonstrates a dilated biliary tree and follow-up right upper quadrant ultrasound which confirms patient is status postcholecystectomy with mildly dilated common bile duct. Today patient reports significant improvement in his discomfort and his labs appear to be spontaneously downtrending. This potentially could represent spontaneous passage of a stone. Still his laboratories remain significantly skewed and I believe he would benefit from evaluation with gastroenterology. For the interim, recommend continued empiric intravenous antibiotic coverage in the case that is biliary tree remains at least partially obstructed. No surgical intervention planned/warranted. Charges/Coding Visit Charges Inpatient E&M: 48779 Subs Hosp L2
[2022-07-31 11:42] VITALS: BP 129/79; PULSE 87; RESP 16; TEMP 36.5; O2SAT 99
--- NOTE | 2022-07-31 12:37 | NURSING ---
pt called out and stated that if he does not have ERCP today he wants to leave. notifed dr boston, nadine, and friend. dr mccoy stated she explained to pt this am that it would be best for him to stay for procedure tomorrow. dr blanco stated he will be up to talk with pt soon.
--- NOTE | 2022-07-31 13:42 | PCM.PN.HOSP ---
Subjective Subjective Patient states he is still having some pain however overall controlled. He is frustrated that he may not have his ERCP today however I did explain to him extensively that we need a special spyglass mechanism to do this appropriately and that would be why it would be delayed. Objective Data Objective Data Vital Signs: Vital Signs Temp Pulse Resp BP Pulse Ox O2 Del Method 97.7 F L 87 16 129/79 H 99 Room Air 07/31/22 11:42 07/31/22 11:42 07/31/22 11:42 07/31/22 11:42 07/31/22 11:42 07/31/22 13:33 Oxygen Delivery Method Room Air Weight: 86.7 kg Body Mass Index (BMI) 26.6 Intake & Output: Intake and Output for Last 24 Hours 07/29/22 07/30/22 07/31/22 23:59 23:59 23:59 Intake Total 1500 / 1500 1945.00 / 1944.00 Balance 1500 / 1500 194. / 1944.00 Lab / Micro Data Result Diagrams: 07/31/22 05:52 07/31/22 05:52 Labs: Laboratory Results - last 24 hr 07/30/22 12:23: Phosphorus 1.3 L, Magnesium 2.1 07/30/22 14:10: Urine Color Yellow, Urine Clarity Clear, Urine pH 7.0, Ur Specific [place] 1.010, Urine Protein Negative, Urine Glucose (UA) Normal, Urine Ketones 15 H, Urine Occult Blood 25 H, Urine Nitrite Negative, Urine Bilirubin 1 H, Urine Urobilinogen 1 H, Ur Leukocyte Esterase 25 H, Urine RBC 0-5 SEEN, Urine WBC 0 SEEN, Ur Squamous Epith Cells 0 SEEN, Urine Bacteria 0 SEEN, Urine Mucus 0 SEEN 07/30/22 19:30: PT 12.8, INR 1.0 07/31/22 05:52: WBC 7.0, RBC 4.96, Hgb 16.2, Hct 47.0, MCV 94.8 H, MCH 32.7 H, MCHC 34.5, RDW Std Deviation 50.4 H, RDW Coeff of Digna 14.6, Plt Count 186, MPV 10.4, Immature Gran % (Auto) 0.300, Neut % (Auto) 63.9, Lymph % (Auto) 25.5, [place] % (Auto) 8.7, Eos % (Auto) 1.3, Baso % (Auto) 0.3, Absolute Neuts (auto) 4.5, Absolute Lymphs (auto) 1.78, Nucleated RBC % 0 07/31/22 05:52: Sodium 135 L, Potassium 4.9, Chloride 103, Carbon Dioxide 27.0, Anion Gap 5, BUN 7, Creatinine 1.05, Estim Creat Clear Calc 78.69, Est GFR (MDRD) Af Amer 92, Est GFR (MDRD) Non-Af 76, BUN/Creatinine Ratio 6.7 L, Glucose 93, Calcium 8.7, Total Bilirubin 5.70 H, AST 153 H, ALT 304 H, Alkaline Phosphatase 290 H, Total Protein 6.5, Albumin 2.9 L, Globulin 3.6, Albumin/Globulin Ratio 0.8 L 07/31/22 05:52: APTT 31.7 Radiography Diagnostic Testing: Radiology Impression Abdomen/Pelvis CT 07/30/22 12:14 IMPRESSION: Suspect acute cholecystitis with a severely contracted gallbladder. Clinical correlation and MRCP may be useful. Electronically Signed: Francois Peña MD at 14:34 EDT Reading Location ID and State: [id number] / [employer] Tel , Service support , ADDENDUM: 07/30/22 1757 IMPRESSION: undefined Gallbladder Ultrasound 07/30/22 16:17 IMPRESSION: Status post cholecystectomy with mild biliary ductal dilatation. Electronically Signed: Francois Peña MD at 17:49 EDT Reading Location ID and State: [id number] / [employer] Tel , Service support , Physical Exam Const alert, oriented x3, healthy appearing and well nourished Constitutional Narrative: Overweight, white male sitting up in bed, appears comfortable, nontoxic HEENT head/scalp atraumatic and moist oral mucous membranes Head and Scalp: normocephalic Resp normal respiratory effort, no retractions, no use of accessory muscles and clear to auscultation bilaterally Auscultation: Negative for crackles, rales, rhonchi or wheezes Cardio regular rate, regular rhythm, S1 normal heart sound, S2 normal heart sound, no murmurs, no rub, no gallops and no clicks GI normal to inspection, nondistended, normoactive bowel sounds and soft to palpation GI Narrative: Mild epigastric tenderness and tenderness in bilateral upper quadrants Palpation: tender Extremity no clubbing, cyanosis or edema Extremity Narrative: 2+ pedal pulses Neuro oriented x3, moves all extremities and no focal motor deficits Speech: speech normal Assessment & Plan Assessment/Plan (1) Common bile duct dilatation: (2) Abdominal pain: (3) Hyperbilirubinemia: (4) Elevated liver transaminase level: (5) Hypophosphatemia: PLAN: Plan Abdominal pain with elevated transaminases -History of cholecystectomy approximately 1 year ago -Has had intermittent abdominal pain with ER presentation 4-5 times per patient since cholecystectomy -Suspect patient has a retained stone that has been intermittently lodging causing pain and now obstructing with choledocholithiasis -ERCP either later today or tomorrow -Continue IV fluids -Continue empiric antibiotics -Patient to remain n.p.o. -Gastroenterology is following Hyperbilirubinemia -Suspect related to the above -Trended down -Continue to monitor Hypophosphatemia -Patient was given potassium phosphate bolus -Repeat Phos in a.m. Chronic back pain -Continue Flexeril -Continue home Percocet History of GERD -Continue PPI CHANDANA -Continue nocturnal CPAP Tobacco abuse -COPD suspected with chronic tobacco abuse -Patient's never had PFTs -Recommend outpatient PFTs after discharge -Nicotine replacement therapy available History of migraines -No current issues History of restless leg syndrome -Patient is currently on no medication -No complaints with regards to restless leg currently DVT prophylaxis -Heparin 5000 units twice daily -SCDs CODE STATUS -Full code Charges/Coding Visit Charges Inpatient E&M: 13292 Subs Hosp L2
--- NOTE | 2022-07-31 14:47 | CHAPLAIN ---
Type of Pastoral Visit _x__ Initial Visit ___ Follow-up Visit ___ On-call Visit ___ General Patient Visit ___ Spiritual Assessment ___ Family Conference ___ Bereavement ___ Rapid Response ___ Code Blue ___ Other (describe below) Pastoral Care Referral From _x__ Patient ___ Family ___ Nurse ___ Physician ___ City Engineer ___ Manager Pricing ___ Other (describe below) Sacrament/Intervention _x__ Active listening ___ Anointing ___ Yazdanism ___ Bereavement ___ Communion ___ [place] exploration ___ ___ Life review _x__ Prayer ___ Reconciliation ___ Sacrament of Sick ___ Supportive presence ___ Wedding ___ Other (describe below) Pastoral Comments patient spoke about his procedure coming tomorrow and that he has had many surgeries in his life so this is nothing new or of much concern; pt accepts presence and prayer
--- NOTE | 2022-07-31 16:05 | CASEMGMT ---
LIANNE AMBROCIO Assessment: Face to Face with pt for initial transition planning/care coordination assessment. Pt in bed, in no distress. LIANNE AMBROCIO introduced self and role at [facility], pt voices understanding and consents to assessment. Pt is A/O x4 and answers all questions appropriately at this time. Care providers, pharmacy, and demographics verified/updated. Admitting Dx: Cholestasis, possible Choledocholithiasis. PCP: Pt denied having a PCP. LIANNE AMBROCIO offered a Healthcare Directory pamphlet but pt declined. Specialists: Jim, Pain Management. Preferred Pharmacy: [facility]. Insurance: [employer]. Prescription Benefit: yes LNOK: Tiffanie Ontiverosr, friend. Living Arrangements: Pt lives alone in a one story home. There is one step to get into the home. Pt denies any issues using the step. Pt reports being I in ADLs. Transportation: Pt typically drives self. His friend, Tiffanie, can assist to medical appointments if Pt is unable to drive upon DC. DME/HHC/SNF: Pt denies having or needing any DME. Pt denies any HHC or SNF stays in the past. Pt states no concerns with going home at time of dc. Pt states no further concerns/needs. CM to follow. Advised pt to ask CM if any further question/concerns/needs arise, voices understanding. Pt Goal: Home. Plan: Home.
[2022-07-31 16:25] VITALS: BP 139/81; PULSE 92; RESP 16; TEMP 36.5; O2SAT 99
[2022-07-31] MEDS: oxyCODONE 5 MG Tablet PO (17:51)
[2022-07-31] MEDS: cycloBENZAPRine HCl 10 MG Tablet PO (17:51)
[2022-07-31 21:30] VITALS: BP 131/78; PULSE 75; RESP 18; TEMP 36.7; O2SAT 99
[2022-07-31] MEDS: Heparin Injection (Vial) 5,000 UNIT/ML VIAL 5000 UNIT SC (21:39)
[2022-08-01] VITALS (13 sets, daily range): BP systolic 115–153; BP diastolic 69–92; PULSE 74–103; RESP 16–18; TEMP 36.3–37; O2SAT 84–100; BMI 26.6
[2022-08-01] MEDS: 0.45% Normal Saline 1,000 ML 75 ML IV (05:30)
[2022-08-01 07:10] LABS: Absolute Lymphocyte Count 1.62 X10^3/uL (0.83-4.51); Absolute Neutrophil Count 4.7 X10^3/uL (2.0-7.7); Basophil# 0.03 X10^3/uL; Basophil% 0.4 % (0-1); Eosinophil# 0.11 X10^3/uL; Eosinophils% 1.5 % (0-5); Hematocrit 45.6 % (40-54); Hemoglobin 15.5 g/dL (13.0-16.5); Lymphocyte # 1.62 X10^3/ul (0.83-4.51); Lymphocyte % 22.8 % (19-41); Mean Corpuscular Hgb 32.3 pg (27.0-32.0); Mean Platelet Vol. 10.1 fl (6.2-12.0); Monocyte% 8.4 % (0-10); NRBC Flagged by Analyzer 0 % (0-5); Neutrophil # 4.73 X10^3/uL (2.7-7.7); Neutrophil % 66.6 % (47-70); Platelet Count 217 K/mm3 (150-450); RBC Distribution Width CV 14.6 % (11.6-14.6); RBC Distribution Width SD 51.3 fl (35.1-43.9); White Blood Count 7.1 K/mm3 (4.4-11.0)
[2022-08-01 07:20] LABS: ALB/GLOB Ratio 0.8 RATIO (0.9-2.4); AST(SGOT) 143 U/L (15-37); Alanine Aminotransfer ALT/SGPT 263 U/L (16-61); Albumin, Serum 2.8 g/dL (3.2-5.0); Alkaline Phosphatase 298 U/L (45-117); Anion Gap 4 (5-15); BUN 7 mg/dL (7-18); BUN/Creat Ratio 6.9 RATIO (10-20); Calcium,Total 8.9 mg/dL (8.5-10.1); Chloride 105 mmol/L (98-107); Creatinine, Serum 1.02 mg/dL (0.70-1.30); EST Glomerular Filtration Rate 79 mL/min (>60); Est Glom Filt Rate - Afr Amer 95 mL/min (>60); Globulin 3.5 g/dL (2.2-4.2); Glucose 104 mg/dL (74-106); Potassium 4.5 mmol/L (3.5-5.1); Protein, Total 6.3 g/dL (6.4-8.2); Sodium Level 136 mmol/L (136-145)
[2022-08-01] MEDS: Pantoprazole Sodium 40 MG Tablet PO (08:31)
--- NOTE | 2022-08-01 10:31 | PCM.PROGNOTE ---
Subjective Subjective Patient does not have any abdominal pain and he tolerated a liquid diet. His liver function test continue to go up. Objective Data Objective Data Vital Signs: Vital Signs Temp Pulse Resp BP Pulse Ox O2 Del Method 97.6 F L 88 18 146/92 H 96 Room Air 08/01/22 08:38 08/01/22 08:38 08/01/22 08:38 08/01/22 08:38 08/01/22 08:38 08/01/22 08:38 Oxygen Delivery Method Room Air Weight: 191 lb 2.252 oz Body Mass Index (BMI) 26.6 Intake & Output: Intake and Output for Last 24 Hours 07/30/22 07/31/22 08/01/22 23:59 23:59 23:59 Intake Total 1500 / 1500 4008.3333 / 4008.3333 978.75 / 978.75 Balance 1500 / 1500 4008.3333 / 4008.3333 978.75 / 978.75 Lab / Micro Data Result Diagrams: 08/01/22 06:20 08/01/22 06:20 Labs: Laboratory Results - last 24 hr 08/01/22 06:20: WBC 7.1, RBC 4.80, Hgb 15.5, Hct 45.6, MCV 95.0 H, MCH 32.3 H, MCHC 34.0, RDW Std Deviation 51.3 H, RDW Coeff of Digna 14.6, Plt Count 217, MPV 10.1, Immature Gran % (Auto) 0.300, Neut % (Auto) 66.6, Lymph % (Auto) 22.8, [place] % (Auto) 8.4, Eos % (Auto) 1.5, Baso % (Auto) 0.4, Absolute Neuts (auto) 4.7, Absolute Lymphs (auto) 1.62, Nucleated RBC % 0 08/01/22 06:20: Sodium 136, Potassium 4.5, Chloride 105, Carbon Dioxide 27.0, Anion Gap 4 L, BUN 7, Creatinine 1.02, Estim Creat Clear Calc 81.00, Est GFR (MDRD) Af Amer 95, Est GFR (MDRD) Non-Af 79, BUN/Creatinine Ratio 6.9 L, Glucose 104, Calcium 8.9, Total Bilirubin 6.00 H, AST 143 H, ALT 263 H, Alkaline Phosphatase 298 H, Total Protein 6.3 L, Albumin 2.8 L, Globulin 3.5, Albumin/Globulin Ratio 0.8 L Physical Exam Const alert, oriented x3, healthy appearing and well nourished Constitutional Narrative: Overweight, white male sitting up in bed, appears comfortable, nontoxic HEENT head/scalp atraumatic and moist oral mucous membranes Head and Scalp: normocephalic Resp normal respiratory effort, no retractions, no use of accessory muscles and clear to auscultation bilaterally Auscultation: Negative for crackles, rales, rhonchi or wheezes Cardio regular rate, regular rhythm, S1 normal heart sound, S2 normal heart sound, no murmurs, no rub, no gallops and no clicks GI normal to inspection, nondistended, normoactive bowel sounds and soft to palpation GI Narrative: Mild epigastric tenderness and tenderness in bilateral upper quadrants Palpation: tender Extremity no clubbing, cyanosis or edema Extremity Narrative: 2+ pedal pulses Neuro oriented x3, moves all extremities and no focal motor deficits Speech: speech normal Assessment & Plan Assessment/Plan (1) Hyperbilirubinemia: PLAN: 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 Continue n.p.o. Charges/Coding Visit Charges Inpatient E&M: 88606 [facility] Hosp L1
[2022-08-01] MEDS: cycloBENZAPRine HCl 10 MG Tablet PO (11:10)
[2022-08-01] MEDS: oxyCODONE 5 MG Tablet PO (11:10)
[2022-08-01] MEDS: Lactated Ringers 1,000 ML 15 ML IV ×2 (12:38→15:45)
--- NOTE | 2022-08-01 14:00 | COLBX_PTH ---
PATIENT: HIWOT DELCID LOC: MS3 U#:[id number] AGE/SX: 61/M ROOM: MS315 RE07/30/[address]: Dr. Ronit Grant DO : 1960 BED: 1 DIS: 08/02/2022 SPEC #: [id number] RECD: 08/01/22 16:45 STATUS: MILLER LY #: [id number] WOJCIECH: 08/01/22 14:[address]: Frantz Mcgowan DEPT: SURGICAL PATHOLOGY RECD BY: Kiran Arreola ENTERED: 08/02/22 08:34 SP TYPE: COLON BX OTHR DR: DO Dr. Franki Fernandez MD Dr. Prakash Chand, MD No Primary Care Phys Tissues: Bile duct, NOS Procedures: Surgery Specimen Level IV HEADER OPERATION: ERCP with dilation and Spyglass and lithotripsy and biopsy PRE-OP DIAGNOSIS: Hyperbilirubinemia, common bile duct dilatation TISSUE SUBMITTED: Biliary stricture biopsy MICROSCOPIC DIAGNOSIS Biliary stricture, biopsy: Benign glandular tissue. No evidence of malignancy. AM:becky 08/03/2022 MICROSCOPIC DESCRIPTION Slides are reviewed. GROSS DESCRIPTION Received in fixative is one container labeled with the patient's name and designated biliary stricture biopsy. The specimen consists of multiple minute fragments of light castillo soft tissue that in aggregate measure 0.1 x <0.1 x <0.1 cm. The specimen is totally submitted in one cassette. / AM:becky 08/02/2022 TC:5 CPT: 56850
--- NOTE | 2022-08-01 14:37 | RAD_ITS ---
STUDY: ERCP REASON FOR EXAM: Male, 61 years old. ERCP FLUOROSCOPY TIME (if supplied): ( 2 minutes 11 seconds ) minutes/seconds. 20 images were submitted. TECHNIQUE: An ERCP was performed by the button tufting machine operator. Contrast was injected. Imaging was provided. COMPARISON: None. FINDINGS: The visualized intrahepatic and extrahepatic biliary ducts are unremarkable. A biliary stent was placed. RAD/ERCP Biliary Only IMPRESSION: ERCP with placement of a biliary stent. Electronically Signed: Iban Theodore MD at 10:32 EDT ,
--- NOTE | 2022-08-01 15:56 | PN.HOSP_ITS ---
Subjective Subjective Denies any significant abdominal pain overnight. ERCP is planned for later today. He is anxious to go home however I did explain that he may not be able to go home till tomorrow morning depending on the findings and Dr. Mcgowan's plans. Objective Data Objective Data Vital Signs: Vital Signs Temp Pulse Resp BP Pulse Ox O2 Del Method 97.6 F L 88 18 146/92 H 96 Room Air 08/01/22 08:38 08/01/22 08:38 08/01/22 08:38 08/01/22 08:38 08/01/22 08:38 08/01/22 08:38 Oxygen Delivery Method Room Air Weight: 86.7 kg Body Mass Index (BMI) 26.6 Intake & Output: Intake and Output for Last 24 Hours 07/30/22 07/31/22 08/01/22 23:59 23:59 23:59 Intake Total 1500 / 1500 4008.3333 / 4008.3333 1563.75 / 1563.75 Balance 1500 / 1500 4008.3333 / 4008.3333 1563.75 / 1563.75 Lab / Micro Data Result Diagrams: 08/01/22 06:20 08/01/22 06:20 Labs: Laboratory Results - last 24 hr 08/01/22 06:20: WBC 7.1, RBC 4.80, Hgb 15.5, Hct 45.6, MCV 95.0 H, MCH 32.3 H, MCHC 34.0, RDW Std Deviation 51.3 H, RDW Coeff of Digna 14.6, Plt Count 217, MPV 10.1, Immature Gran % (Auto) 0.300, Neut % (Auto) 66.6, Lymph % (Auto) 22.8, [place] % (Auto) 8.4, Eos % (Auto) 1.5, Baso % (Auto) 0.4, Absolute Neuts (auto) 4.7, Absolute Lymphs (auto) 1.62, Nucleated RBC % 0 08/01/22 06:20: Sodium 136, Potassium 4.5, Chloride 105, Carbon Dioxide 27.0, Anion Gap 4 L, BUN 7, Creatinine 1.02, Estim Creat Clear Calc 81.00, Est GFR (MDRD) Af Amer 95, Est GFR (MDRD) Non-Af 79, BUN/Creatinine Ratio 6.9 L, Glucose 104, Calcium 8.9, Total Bilirubin 6.00 H, AST 143 H, ALT 263 H, Alkaline Phosphatase 298 H, Total Protein 6.3 L, Albumin 2.8 L, Globulin 3.5, Albumin/Globulin Ratio 0.8 L Physical Exam Const alert, oriented x3, healthy appearing and well nourished Constitutional Narrative: Overweight, white male sitting up in bed, appears comfortable, nontoxic HEENT head/scalp atraumatic and moist oral mucous membranes Head and Scalp: normocephalic Resp normal respiratory effort, no retractions, no use of accessory muscles and clear to auscultation bilaterally Resp Narrative: Diffusely diminished but clear Auscultation: Negative for crackles, rales, rhonchi or wheezes Cardio regular rate, regular rhythm, S1 normal heart sound, S2 normal heart sound, no murmurs, no rub, no gallops and no clicks GI normal to inspection, nondistended, normoactive bowel sounds and soft to palpation GI Narrative: Mild epigastric tenderness and tenderness in bilateral upper quadrants Palpation: tender Extremity no clubbing, cyanosis or edema Extremity Narrative: 2+ pedal pulses Neuro oriented x3, moves all extremities and no focal motor deficits Speech: speech normal Assessment & Plan Assessment/Plan (1) Common bile duct dilatation: (2) Abdominal pain: (3) Hyperbilirubinemia: (4) Elevated liver transaminase level: (5) Hypophosphatemia: PLAN: Plan Abdominal pain with elevated transaminases -History of cholecystectomy approximately 1 year ago -Has had intermittent abdominal pain with ER presentation 4-5 times per patient since cholecystectomy -Suspect patient has a retained stone that has been intermittently lodging causing pain and now obstructing with choledocholithiasis -LFTs remain elevated -Repeat in a.m. -ERCP today -Continue IV fluids -Continue empiric antibiotics -Patient to remain n.p.o. -Advance diet after ERCP as per GIs recommendations -Gastroenterology is following-appreciate input Hyperbilirubinemia -Suspect related to the above -Overall stable with no significant change -Continue to monitor Hypophosphatemia -Resolved Chronic back pain -Continue Flexeril -Continue home Percocet History of GERD -Continue PPI CHANDANA -Continue nocturnal CPAP Tobacco abuse -COPD suspected with chronic tobacco abuse -Patient's never had PFTs -Recommend outpatient PFTs after discharge -Nicotine replacement therapy available History of migraines -No current issues History of restless leg syndrome -Patient is currently on no medication -No complaints with regards to restless leg currently DVT prophylaxis -Heparin 5000 units twice daily -SCDs CODE STATUS -Full code Charges/Coding Visit Charges Inpatient E&M: 05255 Subs Hosp L2
--- NOTE | 2022-08-01 16:26 | OP.ERCP_ITS ---
Patient Name: Mao Paredes Procedure Date: 08/01/2022 2:23 PM Date of : 1960 Age: 61 Procedure: ERCP Indications: Bile duct stone(s) Providers: Frantz Mcgowan DO Medicines: Propofol per Anesthesia, Monitored Anesthesia Care Patient Profile: This is a 61 year old male. Refer to note in patient chart for documentation of history and physical. Patient has symptoms of acute jaundice. Complications: No immediate complications. Procedure: Pre-Anesthesia Assessment: - Prior to the procedure, a History and Physical was performed, and patient medications and allergies were reviewed. The risks and benefits of the procedure and the sedation options and risks were discussed with the patient. All questions were answered and informed consent was obtained. Patient identification and proposed procedure were verified by the physician in the pre-procedure area. Mental Status Examination: alert and oriented. Airway Examination: normal oropharyngeal airway and neck mobility. Respiratory Examination: clear to auscultation. CV Examination: normal. Prophylactic Antibiotics: The patient does not require prophylactic antibiotics. Prior Anticoagulants: The patient has taken no previous anticoagulant or antiplatelet agents. ASA Grade Assessment: II - A patient with mild systemic disease. After reviewing the risks and benefits, the patient was deemed in satisfactory condition to undergo the procedure. The anesthesia plan was to use moderate sedation / analgesia (conscious sedation). Immediately prior to administration of medications, the patient was re-assessed for adequacy to receive sedatives. The heart rate, respiratory rate, oxygen saturations, blood pressure, adequacy of pulmonary ventilation, and response to care were monitored throughout the procedure. The physical status of the patient was re-assessed after the procedure. After obtaining informed consent, the scope was passed under direct vision. Throughout the procedure, the patient's blood pressure, pulse, and oxygen saturations were monitored continuously. The Duodenoscope was introduced through the mouth, and advanced to the duodenum and used to cannulate the bile duct. The ERCP was accomplished without difficulty. The patient tolerated the procedure well. Scope In: 2:46:21 PM Scope Out: 4:10:51 PM Total Procedure Duration Time 1 hour 24 minutes 30 seconds Findings: The ecommerce analyst film was normal. The esophagus was successfully intubated under direct vision. The scope was advanced to a normal major papilla in the descending duodenum without detailed examination of the pharynx, larynx and associated structures, and upper GI tract. The upper GI tract was grossly normal. The bile duct was deeply cannulated with the short-nosed traction sphincterotome. Contrast was injected. I personally interpreted the bile duct images. There was brisk flow of contrast through the ducts. Image quality was excellent. Contrast extended to the biliary pancreatic junction. The lower third of the main bile duct and cystic duct were completely obstructed by what appeared to be a stone. A straight Roadrunner wire was passed into the biliary tree. A 5 mm biliary sphincterotomy was made with a traction (standard) sphincterotome using ERBE electrocautery. Moderate bleeding from the sphincterotomy stopped within 5 minutes. The biliary tree was swept with a 15 mm balloon starting at the bifurcation. Sludge was swept from the duct. All stones were removed. The bile duct was explored endoscopically using the SpyGlass direct visualization system. The SpyScope was advanced to the right intrahepatic duct(s). Visibility with the scope was good. The common hepatic duct contained one stone, which was 6 mm in diameter. The bile duct was explored endoscopically using the SpyGlass direct visualization system. The SpyGlass probe was advanced to the lower third of the main duct. Visibility with the probe was good. The lower third of the main bile duct contained three stones, the largest of which was 6 mm in diameter. The in the biliary system was normal. Electrohydraulic lithotripsy was successful. The biliary tree was swept with a 15 mm balloon starting at the right intrahepatic duct(s). Sludge was swept from the duct. All stones were removed. The lower third of the main bile duct was biopsied with a Immaculate Baking miniature biopsy forceps for histology. Fluid aspiration for cytology was performed in the entire biliary tree. Cells for cytology were obtained by brushing in the lower third of the main bile duct. One 10 Fr by 7 cm temporary stent with two external flaps and two internal flaps was placed 5 cm into the common bile duct. Clear fluid flowed through the stent. The stent was in good position. Impression: - Choledocholithiasis with an obstruction was found. Complete removal was accomplished by biliary sphincterotomy and balloon extraction. - A biliary sphincterotomy was performed. - The biliary tree was swept. - Lithotripsy was successful. - The biliary tree was swept. - Biopsy was performed in the lower third of the main duct. - Fluid aspiration was performed. - Cells for cytology obtained in the lower third of the main duct. - One temporary stent was placed into the common bile duct. Recommendation: - Avoid aspirin and nonsteroidal anti-inflammatory medicines for 7 days. - Full liquid diet today. Procedure Code(s): --- Professional --- 34653, Endoscopic retrograde cholangiopancreatography (ERCP); with placement of endoscopic stent into biliary or pancreatic duct, including pre- and post-dilation and guide wire passage, when performed, including sphincterotomy, when performed, each stent 87416, 51, Endoscopic retrograde cholangiopancreatography (ERCP); with destruction of calculi, any method (eg, mechanical, electrohydraulic, lithotripsy) 83094, 59, Endoscopic retrograde cholangiopancreatography (ERCP); with biopsy, single or multiple 02068, Endoscopic cannulation of papilla with direct visualization of pancreatic/common bile duct(s) (List separately in addition to code(s) for primary procedure) 41909, 26, Endoscopic catheterization of the biliary ductal system, radiological supervision and interpretation CPT copyright 2017 [employer]. All rights reserved. The codes documented in this report are preliminary and upon computer language coder review may be revised to meet current compliance requirements. Frantz Mcgowan DO 08/01/2022 4:26:27 PM This report has been signed electronically. Number of Addenda: 0 Note Initiated On: 08/01/2022 2:23 PM
--- NOTE | 2022-08-01 16:27 | OP.CCLET_ITS ---
08/01/2022 No Primary Care Physician Re : ERCP procedure for Mao Paredes Dear Care Physician This procedure was performed on Monday, August 01, 2022. My impressions and recommendations are as follows: Impressions : - Choledocholithiasis with an obstruction was found. Complete removal was accomplished by biliary sphincterotomy and balloon extraction. - A biliary sphincterotomy was performed. - The biliary tree was swept. - Lithotripsy was successful. - The biliary tree was swept. - Biopsy was performed in the lower third of the main duct. - Fluid aspiration was performed. - Cells for cytology obtained in the lower third of the main duct. - One temporary stent was placed into the common bile duct. Recommendations : - Avoid aspirin and nonsteroidal anti-inflammatory medicines for 7 days. - Full liquid diet today. My findings are described in the full procedure note, which is enclosed. If I can be of further assistance, please feel free to contact me at . Sincerely, Frantz Mcgowan, 08/01/2022 4:26:27 PM This report has been signed electronically.
[2022-08-01] MEDS: Heparin Injection (Vial) 5,000 UNIT/ML VIAL 5000 UNIT SC (22:15)
[2022-08-02] VITALS (7 sets, daily range): BP systolic 107–128; BP diastolic 58–86; PULSE 84–89; RESP 16; TEMP 36.6–37; O2SAT 95–97
[2022-08-02 07:46] LABS: ALB/GLOB Ratio 0.7 RATIO (0.9-2.4); AST(SGOT) 150 U/L (15-37); Alanine Aminotransfer ALT/SGPT 251 U/L (16-61); Albumin, Serum 2.7 g/dL (3.2-5.0); Alkaline Phosphatase 292 U/L (45-117); Anion Gap 6 (5-15); BUN 10 mg/dL (7-18); BUN/Creat Ratio 8.9 RATIO (10-20); Calcium,Total 8.9 mg/dL (8.5-10.1); Chloride 104 mmol/L (98-107); Creatinine, Serum 1.12 mg/dL (0.70-1.30); EST Glomerular Filtration Rate 71 mL/min (>60); Est Glom Filt Rate - Afr Amer 86 mL/min (>60); Estimated Creatinine Clearance 73.77 ml/min; Globulin 3.7 g/dL (2.2-4.2); Glucose 134 mg/dL (74-106); Potassium 4.3 mmol/L (3.5-5.1); Protein, Total 6.4 g/dL (6.4-8.2); Sodium Level 135 mmol/L (136-145)
[2022-08-02] MEDS: Heparin Injection (Vial) 5,000 UNIT/ML VIAL 5000 UNIT SC (09:50)
[2022-08-02] MEDS: Pantoprazole Sodium 40 MG Tablet PO (09:50)
--- NOTE | 2022-08-02 11:56 | PCM.DC.SUM ---
Providers Date of Admission: 07/30/22 Date of Discharge: 08/02/22 Primary Care Physician: Gracie Primary Care Phys Consultations 07/30/22 18:10 Consult: Gastroenterology Routine Consulting Provider: Therese Gastroenterjasmin Reason for Consult: suspected choldocolithiasis EMERGENT Consult: No Notified: Yes Date Notified: 07/30/22 Time Notified: 17:37 Method of Notification: Verbal Comments:: Discussed by Dr. Gore Consult: General Surgery Routine Consulting Provider: Franki Gore Reason for Consult: Suspected choledocholithiasis EMERGENT Consult: No Notified: Yes Date Notified: 07/30/22 Time Notified: 16:30 Method of Notification: ED Physician Initiated Reason For Visit: CHOLESTASIS, POSSIBLE CHOLEDOCHOLITHIASIS Diagnosis Discharge Diagnosis (1) Common bile duct dilatation: Status: Acute Code(s): K83.8 - Other specified diseases of biliary tract (2) Abdominal pain: Status: Acute Code(s): R10.9 - Unspecified abdominal pain (3) Hyperbilirubinemia: Status: Acute Code(s): E80.6 - Other disorders of bilirubin metabolism (4) Elevated liver transaminase level: Status: Acute Code(s): R74.01 - Elevation of levels of liver transaminase levels (5) Hypophosphatemia: Status: Acute Code(s): E83.39 - Other disorders of phosphorus metabolism Medications at Discharge Home Medications cyclobenzaprine 10 mg tablet 10 mg PO TID PRN Muscle Spasm 03/22/21 oxycodone-acetaminophen 5 mg-325 mg tablet 1 tab PO DAILY PRN Pain 03/22/21 oxycodone-acetaminophen 5 mg-325 mg tablet (Percocet) 1 tab PO Q8H PRN pain 5 days #14 tabs 03/23/21 omeprazole 40 mg capsule,delayed release 40 mg PO DAILY #30 caps 07/28/22 Hospital Course Procedures - (ERCP) Summary of Care Provided Minutes Spent on Discharge: 36 Hospital Course: Mr. Paredes is a 61-year-old white male who presented to the emergency department at [facility] on 10/30/2021 complaining of abdominal pain and loss of appetite. The patient had a cholecystectomy performed approximately 1 year ago and has had periodic issues with abdominal pain that typically have relented on their own. He initially came to the emergency department on 07/28/2022 with abdominal pain and no significant abnormalities were found and he was discharged home. He was reevaluated on 07/30/2022 for ongoing abdominal pain that had been persistent since he was previously seen and loss of appetite. His pain was predominantly epigastric and in the right upper quadrant. He reported that he was also mildly constipated and had poor appetite. His vital signs were overall unremarkable upon presentation however his liver enzymes showed an elevated bilirubin, AST, ALT, and alk phosphatase. His lipase was normal and a CT of his abdomen pelvis was performed which reported acute cholecystitis and a severely contracted gallbladder however the patient as noted above had previous laparoscopic cholecystectomy. There was concern that possibly he had a retained stone and was suffering from intermittent choledocholithiasis. It seems that possibly his periodic presentations with the above symptoms may have been related to ball valving of a gallstone that finally lodged in a duct causing transaminase elevation and ongoing pain. He is initially evaluated by surgery which recommended GI follow-up for ERCP. He was placed on empiric Zosyn during his hospital course. He was taken for ERCP on 08/01/2022 at which time he was found to have choledocholithiasis with obstruction. Complete removal of the stone was accomplished by biliary sphincterotomy and balloon extraction. 1 temporary stent was placed in the common bile duct and cells were obtained for cytology from the lower third of the main duct. It was recommended that he avoid aspirin and nonsteroidal anti-inflammatory medications for approximately 7 days and a full liquid diet was initiated. The patient was able to be advanced to a regular diet and he tolerated this well. His LFTs remain elevated with an elevated alk phos, ALT, and AST however his bilirubin decreased from 7.3 on admission to 3.23 after sphincterotomy. I suspect his transaminases should slowly trend down. GI will follow up with his transaminases in the next 3 to 5 days and he is to follow-up with Dr. Mcgowan from gastroenterology in the next 2 weeks. Was recommended he establish and follow-up with a primary care physician after discharge. He was able to be discharged home in stable condition on 08/02/2022. Discharge diagnoses: Abdominal pain and transaminitis secondary to choledocholithiasis Hyperbilirubinemia Hypophosphatemia-resolved Chronic low back pain History of GERD CHANDANA Tobacco abuse History of migraines History of restless leg syndrome Physical Exam Const alert, oriented x3, no apparent distress, healthy appearing and well nourished Constitutional Narrative: Overweight, white male sitting up in bed, appears comfortable, nontoxic General Appearance: cooperative, comfortable, well kempt and well developed Orientation / Consciousness: awake, oriented to person, oriented to place and oriented to time Exam Limitations: no limitations HEENT normocephalic, head/scalp atraumatic, hearing grossly normal bilaterally and moist oral mucous membranes HEENT Narrative: Dentition is good, Mallampati is 2, no thrush Eyes PERRL, EOMs intact bilaterally and conjunctivae normal Eyes Narrative: No scleral icterus Neck no lymphadenopathy and supple Neck Narrative: Trachea midline, no thyroid enlargement Resp normal respiratory effort, no retractions, no use of accessory muscles and clear to auscultation bilaterally Resp Narrative: Diffusely diminished but clear Auscultation: Negative for crackles, rales, rhonchi or wheezes Cardio regular rate, regular rhythm, S1 normal heart sound, S2 normal heart sound, no murmurs, no rub, no gallops and no clicks GI normal to inspection, nondistended, normoactive bowel sounds, soft to palpation and non-tender Extremity no clubbing, cyanosis or edema Extremity Narrative: 2+ pedal pulses Skin no rashes or lesions noted, no wounds, skin turgor normal and no jaundice Neuro oriented x3, CN's II-XII intact bilaterally, moves all extremities and no focal motor deficits Speech: speech normal Motor Exam: strength 5/5 throughout Psych affect normal Psych Narrative: Very pleasant and appropriately interactive Weight / BMI Weight Weight: 86.7 kg Body Mass Index (BMI) 26.6 ABG / Lab / Microbiology Data Result Diagrams: 08/01/22 06:20 08/02/22 06:20 Laboratory: Laboratory Results - last 24 hr 08/02/22 06:20: Sodium 135 L, Potassium 4.3, Chloride 104, Carbon Dioxide 25.0, Anion Gap 6, BUN 10, Creatinine 1.12, Estim Creat Clear Calc 73.77, Est GFR (MDRD) Af Amer 86, Est GFR (MDRD) Non-Af 71, BUN/Creatinine Ratio 8.9 L, Glucose 134 H, Calcium 8.9, Total Bilirubin 3.20 H, AST 150 H, ALT 251 H, Alkaline Phosphatase 292 H, Total Protein 6.4, Albumin 2.7 L, Globulin 3.7, Albumin/Globulin Ratio 0.7 L Radiography Diagnostic Testing: Radiology Impression ERCP X-Ray 08/01/22 14:37 IMPRESSION: ERCP with placement of a biliary stent. Electronically Signed: Iban Theodore MD at 10:32 EDT Reading Location ID and State: [address] [place] [address] , Service support , D/C Instructions Discharge Diet: No restrictions Discharge Activity: Return to Normal Activity Return to work on: 08/03/22 Meaningful Use Info Meaningful Use Diagnoses (Choose all that apply): None applicable Discharge Plan Admission Admit Date/Time: 07/30/22 17:32 Primary Reason for Your Visit: Abdominal pain Attending Provider: Ronit Grant Primary Care Provider: Care Physician,No Primary Consulting Providers: Franki Gore ; Scottie Gomez Instructions Additional Instructions / Restrictions: 1. Recommend that you find a primary care physician to follow-up chronically with chronic medical issues 2. Avoid aspirin and nonsteroidal anti-inflammatory medications for 7 days Discharge Orders/Prescriptions Prescriptions: Continued cyclobenzaprine 10 mg tablet 10 mg PO TID PRN (Reason: Muscle Spasm) Label Comments: TAKE 1 TABLET BY MOUTH THREE TIMES DAILY NEEDED spasms oxycodone-acetaminophen 5-325 mg tablet 1 tab PO DAILY PRN (Reason: Pain) Label Comments: TAKE 1 TABLET BY MOUTH EVERY DAY NEEDED oxycodone-acetaminophen [Percocet] 5-325 mg tablet 1 tab PO Q8H PRN (Reason: pain) 5 Days Qty: 14 0RF omeprazole 40 mg capsule,delayed release(DR/EC) 40 mg PO DAILY Qty: 30 0RF Referrals / Follow Up: Frantz Mcgowan, [Med Staff - Active Staff] - Within 2 Weeks (Call shortly after discharge to make follow-up appointment to be seen within the next 2 weeks) Care Physician,No Primary [Primary Care Provider] - Disposition Disposition (needs filled in before D/C Order can be placed): Home, Self Care Charges/Coding Visit Charges Inpatient E&M: 37622 Disch Hosp
== END 2022-08-02 12:19 | disposition home or self-care (01) ==
LOC: ED 16:42 → MS3 18:17
PROVIDERS: Anesthesiology; Internal Medicine Gastroenterology; Admitting Provider Internal Medicine; Emergency Provider Emergency Medicine; Visit Provider Internal Medicine
PROC: 0F7D8DZ Dilation of Pancreatic Duct with Intraluminal Device, Via Natural or Artificial Opening Endoscopic (ICD-10-PCS; CPT 43260; principal; 2022-08-01 13:40)
DX: K83.8 Other specified diseases of biliary tract (principal); E83.39 Other disorders of phosphorus metabolism; J44.9 Chronic obstructive pulmonary disease, unspecified; K80.51 Calculus of bile duct without cholangitis or cholecystitis with obstruction; E80.6 Other disorders of bilirubin metabolism; G25.81 Restless legs syndrome; G47.33 Obstructive sleep apnea (adult) (pediatric); K80.20 Calculus of gallbladder without cholecystitis without obstruction; F17.210 Nicotine dependence, cigarettes, uncomplicated; G89.29 Other chronic pain; R74.01 Elevation of levels of liver transaminase levels; Z90.49 Acquired absence of other specified parts of digestive tract; M54.50 Low back pain, unspecified
CPT/HCPCS: 36415; 71046; 74177; 74328; 76000; 76705; 80048; 80053; 80076; 81001; 83690; 83735; 84100; 84484; 85025; 85610; 85730; 88304; 88305; 93005; 99251; 99284; 99285; J7030; J7040; J7050; J7120; Q9967; A4216; C1726; G0463; J2405